=== PATIENT | male | born 1945 | race Caucasian/White ===

== ENCOUNTER → 2020-02-14 12:29 | Outpatient (CLI) | payer OTHER, SELFPAY ==
--- NOTE | 2020-02-14 12:30 | DI.RAD.S_ITS ---
PROCEDURE: XR LUMBAR SPINE MIN 4V INDICATIONS: LOW BACK PAIN TECHNIQUE: 5 views of the lumbar spine were acquired. COMPARISON: None. FINDINGS: Bones: 5 nonrib-bearing vertebrae are present. There is trace degenerative anterolisthesis of L5 on S1, trace degenerative retrolisthesis of L4 on L5, and trace degenerative anterolisthesis of L3 on L4. Multilevel degenerative disc space loss. Prominent lower lumbar hypertrophic degenerative facet arthropathy. Suspect canal stenosis. No vertebral body compression fractures. No suspicious bony lesions. Soft tissues: Overlying bowel gas pattern is normal. No suspicious soft tissue calcifications. Oblique images: No pars defects. IMPRESSION: Multilevel degenerative disc disease and prominent lower lumbar facet arthropathy. Suspect canal stenosis. Dictated by: Flo Nunn M.D. on 02/14/2020 at 13:12 Approved by: Flo Nunn M.D. on 02/14/2020 at 13:17
== END ==
PROVIDERS: PCP Family Medicine; Referring Provider Physical Medicine & Rehabilitation; Visit Provider Physical Medicine & Rehabilitation
DX: M51.16 Intervertebral disc disorders with radiculopathy, lumbar region (principal); M47.26 Other spondylosis with radiculopathy, lumbar region; G62.9 Polyneuropathy, unspecified
CPT/HCPCS: 72110; 99214

== ENCOUNTER → 2020-04-15 12:21 | Outpatient (CLI) | payer OTHER, SELFPAY ==
--- NOTE | 2020-04-15 12:23 | DI.MRI.S_ITS ---
PROCEDURE: MR LUMBAR SPINE WO CON INDICATIONS: Chronic progressive low back pain TECHNIQUE: Noncontrast sagittal T1 spin echo and T2 fast echo, sagittal STIR, axial T1 and T2 fast spin echo through the lumbar spine. In cases with scoliosis, additional coronal T2 fast spin echo may be performed. COMPARISON: [facility], CR, XR LUMBAR SPINE MIN 4V, 02/14/2020, 12:21. [facility], RG, MRI L-SPINE W/O CONTRAST, 10/06/2011, 17:17. FINDINGS: Image quality: Excellent. Alignment and Curvature: There is minimal anterolisthesis seen at L3-4. Minimal retrolisthesis is seen at L4-5. Minimal anterolisthesis is seen at L5-S1. Bone Marrow: Marrow is of normal overall signal. No acute vertebral body compression fractures. Spinal Cord: Conus medullaris terminates at the T12-L1 level. Visualized cord demonstrates normal signal and size. Paraspinous Soft Tissues: No paravertebral masses. T12-L1: Normal appearance. L1-L2: The disc height and disc signal are relatively well preserved. Mild disc bulge is seen, which is eccentric to the left. There is minimal to mild left-sided and no significant right-sided neural foraminal narrowing seen. No significant central canal narrowing is seen. Stable from the prior study. L2-L3: The disc height is well-preserved. Loss of disc signal is seen at this level. Moderate disc bulge is seen, which is eccentric to the left. There is mild right-sided and mild left-sided facet hypertrophy seen. Moderate bilateral neural foraminal narrowing is seen, left worse than right. Moderate central canal narrowing is seen. These imaging findings have progressed compared to the prior study. L3-L4: Moderate loss of disc height is seen. Loss of disc signal is seen. Moderate disc bulge is seen, which is eccentric to the left. There is moderate to prominent facet hypertrophy seen. Associated hypertrophy of the ligamentum flavum can be seen. There is at least moderate bilateral neural foraminal narrowing seen at this level. Moderate central canal narrowing is seen. These imaging findings have progressed compared to the prior study. L4-L5: Moderate prominent loss of disc height and disc signal can be seen. Moderate prominent disc bulge is seen, which is eccentric to the right. There is moderate right-sided and mild left-sided facet hypertrophy seen. There is moderate left-sided and at least moderate right-sided neural foraminal narrowing seen. Moderate central canal narrowing is seen. These degenerative changes are more prominent than in 2012. L5-S1: Moderate loss of disc height is seen. Loss of disc signal is seen. Moderate disc bulge is seen, with a central disc protrusion. Moderate prominent facet hypertrophy is seen. There is moderate to severe bilateral neural narrowing seen, right worse than left. There is a degree of compression seen upon the exiting nerve roots. At least moderate central canal narrowing is seen. These imaging findings have progressed compared to the prior study. IMPRESSION: Multiple levels of lumbar spine degenerative change are seen, which are worst at L5-S1. The degenerative changes have progressed compared to 2012. Dictated by: Donald Quinn M.D. on 04/15/2020 at 16:02 Approved by: Donald Quinn M.D. on 04/15/2020 at 16:06
== END ==
PROVIDERS: PCP Internal Medicine; Referring Provider Physical Medicine & Rehabilitation; Visit Provider Physical Medicine & Rehabilitation
DX: M47.816 Spondylosis without myelopathy or radiculopathy, lumbar region (principal); M54.5 Low back pain; M51.36 Other intervertebral disc degeneration, lumbar region; M51.37 Other intervertebral disc degeneration, lumbosacral region
CPT/HCPCS: 72148

== ENCOUNTER → 2021-01-28 08:53 | Outpatient (CLI) | payer OTHER, SELFPAY ==
[2021-01-28 15:57] LABS: COVID19 -Nasal RAPID Negative (Negative)
== END ==
PROVIDERS: PCP Internal Medicine; Referring Provider Physical Medicine & Rehabilitation; Visit Provider Physical Medicine & Rehabilitation
DX: Z20.822 Contact with and (suspected) exposure to COVID-19 (principal)
CPT/HCPCS: 87635; C9803

== ENCOUNTER 2021-01-30 14:54 | Outpatient (CLI) | payer OTHER, SELFPAY ==
[2021-01-30] VITALS (7 sets, daily range): BP systolic 98–124; BP diastolic 54–70; PULSE 62–69; RESP 11–16; TEMP 36.8; O2SAT 95–99
--- NOTE | 2021-01-30 14:56 | DI.RAD.S_ITS ---
PROCEDURE: PAIN L/S TRANSFORAMINAL INJECT INDICATIONS: SPONDYLOSIS COMPARISON: [facility], CR, XR LUMBAR SPINE MIN 4V, 02/14/2020, 12:21. FINDINGS: Fluoroscopic spot filming was performed to verify placement of a spinal needle at the L4-L5 level, as labeled on the films. Appropriate location of the needle tip was confirmed by injection of iodinated contrast. IMPRESSION: Intraprocedural examination within normal limits. Dictated by: Donald Quinn M.D. on 01/30/2021 at 15:06 Approved by: Donald Quinn M.D. on 01/30/2021 at 15:06
[2021-01-30] MEDS: fentaNYL 100 MCG/2 ML INJ 50 MCG IV (15:42)
[2021-01-30] MEDS: MIDAZOLAM 5 MG/5 ML VIAL IV (15:42)
[2021-01-30] MEDS: IOPAMIDOL 15 ML VIAL 3 ML INJ (15:46)
[2021-01-30] MEDS: BETAMETHASONE 30 MG/5 ML MDV 6 MG INJ (15:46)
[2021-01-30] MEDS: BUPIVACAINE 0.25% (PF) VIAL 2 ML INJ (15:46)
[2021-01-30] MEDS: DEXAMETHASONE 10 MG/ML VIAL 20 MG INJ (15:47)
--- NOTE | 2021-01-30 15:57 | P.PCN_ITS ---
Date/Time/Diagnoses Date of procedure: 01/30/21 Time of procedure: 15:57 Pre-procedure diagnosis: 1. FORAMINAL STENOSIS WITH LE SYMPTOMS Post-procedure diagnosis: same Procedure Notes Procedure: 1. FLUOROSCOPICALLY GUIDED CONTRAST CONTROLLED TRANSFORAMINAL EPIDURAL STEROID INJECTION - LEFT L4/5 Indications: [place] is referred by Dr. Tobar for treatment of Foraminal Stenosis with Left LE Symptoms Physician: Corbin Lacy Total Fluoroscopy time (seconds): 6 Total sedation minutes: 8 Complications: none Procedure in detail & Post-procedure care: FINDINGS Foraminal Nerve Root Compression secondary to disc disease and facet hypertrophy DESCRIPTION OF PROCEDURE Following review of allergy and review of potential side effects and complications, including, but not necessarily limited to, infection, allergic reaction, local tissue breakdown, stroke, temporary or permanent nerve injury, paralysis, and possible , the patient indicated that the patient understood and agreed to proceed. An informed consent document was signed by the patient, witnessed by a nurse, and placed in the patient's chart. Additionally, other treatment options including medications, modalities, and physical therapy were reviewed with the patient. After review of previous anaesthesic history and IV conscious sedation the patient was deemed safe to proceed with today?s procedure with IV conscious sedation as ASA class II designation. Safety time-out was performed to confirm patient ID, procedure to be performed and site of procedure. IV sedation was accomplished with a combination of 2mg of Versed and 50mcg of Fentanyl administered by the RN after DO order, titrated to patient comfort during the course of the procedure while the patient remained responsive to all verbal commands In the prone position following sterile prep and drape of the lumbar region, the left L4/5 posterior neuroforamen was identified fluoroscopically. The skin was anesthetized via a 25-gauge 1.5-inch needle with 1% lidocaine solution. At this point, a 25-gauge 3.5-inch spinal needle was atraumatically introduced and advanced under fluoroscopic guidance through the posterior left L4/5 neuroforamen to approximately the anterior aspect of the canal. Depth was confirmed on lateral view. Following negative aspiration, injection of approximately 1.5 cc of Isovue 200 under live fluoroscopy in the AP view confirmed excellent flow along the nerve root, into the epidural space without vascular or intrathecal uptake observed Radiological data, including multiple fluoroscopic views of the lumbosacral spine, reveal a spinal needle at the left L4/5 posterior neuroforamen. Subsequent views show flow of contrast material flowing superiorly and inferiorly along the nerve root confirming epidural flow. Subsequently, a test dose of 1.5 cc of 1% lidocaine solution was administered and patient was observed for two minutes for signs or symptoms of complications, including abdominal pain, shortness of breath, bilateral upper or lower extremity weakness, nausea and vomiting, prior to steroid injection. At this point, a total of 3cc or 20mg of dexamethasone and 6mg of betamethasone was injected without incident. The procedure tolerated the procedure well without signs or symptoms of complications prior to transfer to the recovery area continued monitoring without incident. The patient was then transferred to the recovery area where they were observed for an appropriate time after the injection. The patient reported a VAS score of 7 prior to the procedure and a post- procedure VAS of 0. POST OP INSTRUCTIONS The patient was provided a Pain Log to continue to record their response to the target-specific procedure prior to follow-up visit with their referring physician. Additionally, specific post-injection care instructions and a contact number to our office were provided if concerns arise regarding possible complications associated with the procedure are suspected.
== END 2021-01-30 16:30 | disposition home or self-care (01) ==
LOC: RAD 14:56
PROVIDERS: PCP Internal Medicine; Referring Provider Physical Medicine & Rehabilitation; Visit Provider Physical Medicine & Rehabilitation
DX: M48.061 Spinal stenosis, lumbar region without neurogenic claudication (principal); M51.16 Intervertebral disc disorders with radiculopathy, lumbar region
CPT/HCPCS: 64483; J0702; J1100; J2250; J3010

== ENCOUNTER → 2021-04-07 13:02 | Outpatient (CLI) | payer OTHER, SELFPAY ==
[2021-04-07 16:54] LABS: COVID19 -Nasal RAPID Negative (Negative)
== END ==
PROVIDERS: PCP Internal Medicine; Referring Provider Physical Medicine & Rehabilitation; Visit Provider Physical Medicine & Rehabilitation
DX: Z20.822 Contact with and (suspected) exposure to COVID-19 (principal)
CPT/HCPCS: 87635; C9803

== ENCOUNTER → 2021-06-30 14:09 | Outpatient (CLI) | payer OTHER, SELFPAY ==
[2021-06-30 15:35] LABS: COVID19 -Nasal RAPID Negative (Negative)
== END ==
PROVIDERS: PCP Internal Medicine; Visit Provider Physical Medicine & Rehabilitation
DX: Z20.822 Contact with and (suspected) exposure to COVID-19 (principal)
CPT/HCPCS: 87635; C9803

== ENCOUNTER 2021-07-01 15:28 | Outpatient (CLI) | payer OTHER, SELFPAY ==
[2021-07-01] VITALS (9 sets, daily range): BP systolic 107–157; BP diastolic 63–81; PULSE 55–69; RESP 11–20; TEMP 36.8; O2SAT 96–100
--- NOTE | 2021-07-01 15:30 | DI.RAD.S_ITS ---
PROCEDURE: PAIN L/S FACET INJ/BLK 1ST SKYE COMPARISON: None. INDICATIONS: SPONDYLOSIS FINDINGS: 6 fluoroscopic image demonstrate bilateral facet injections at L3 through 5. IMPRESSION: Bilateral facet injections at L3 through L5. Dictated by: Luis Aviles M.D. on 07/01/2021 at 16:48 Approved by: Luis Aviles M.D. on 07/01/2021 at 16:51
[2021-07-01] MEDS: fentaNYL 100 MCG/2 ML INJ 50 MCG IV (15:59)
[2021-07-01] MEDS: IOPAMIDOL 15 ML VIAL 3 ML INJ (16:03)
[2021-07-01] MEDS: BUPIVACAINE 0.5% (PF) VIAL 5 ML INJ (16:04)
[2021-07-01] MEDS: LIDOCAINE 1% 20 ML (16:04)
[2021-07-01] MEDS: BETAMETHASONE 30 MG/5 ML MDV 12 MG INJ (16:05)
[2021-07-01] MEDS: MIDAZOLAM 5 MG/5 ML VIAL IV (16:09)
--- NOTE | 2021-07-01 16:21 | P.PCN_ITS ---
Date/Time/Diagnoses Date of procedure: 07/01/21 Time of procedure: 16:21 Pre-procedure diagnosis: 1. FACET ARTHROPATHY 2. AXIAL LBP 3. MULTILEVEL DDD This procedure is found to meet the Governor's proclamation 20-24.2 regarding non urgent procedures. This patient meets multiple criteria for the procedure including continuing or worsening of significant or severe pain, combined with further deterioration of the patient's condition or overall health as well as delay in treatment would be expected to result in less positive ultimate medical outcome. Therefore the decision to perform the procedure in an outpatient hospital setting is found to be in accordance with guidelines of the proclama tion. Post-procedure diagnosis: same Procedure Notes Procedure: 1. FLUORSCOPICALLY GUIDED CONTRAST CONTROLLED FACET JOINT INJECTIONS BILATERAL L3/4, L4/5 Indications: Gu[place] is referred by Dr. Tobar for treatment of Axial LBP Physician: Corbin Lacy Total Fluoroscopy time (seconds): 11 Total sedation minutes: 13 Complications: none Procedure in detail & Post-procedure care: FINDINGS Multilevel Facet Arthropathy with Clinically significant axial LBP DESCRIPTION OF PROCEDURE Fluoroscopically guided, contrast-controlled bilateral L3/4, L4/5 facet joint injections. Following review of allergy and review of potential side effects and complications, including, but not necessarily limited to, infection, allergic reaction, local tissue breakdown, stroke, temporary or permanent nerve injury, paralysis, and possible , the patient indicated that the patient understood and agreed to proceed. An informed consent document was signed by the patient, witnessed by a nurse, and placed in the patient's chart. Additionally, other treatment options including medications, modalities, and physical therapy were reviewed with the patient. After review of previous anaesthesic history and IV conscious sedation the patient was deemed safe to proceed with today's procedure with IV conscious sedation as ASA class II designation. Safety time-out was performed to confirm patient ID, procedure to be performed and site of procedure. IV sedation was accomplished with a combination of 3mg of Versed and 50mcg of Fentanyl was administered by the RN after DO order, titrated to patient comfort during the course of the procedure while the patient remained responsive to all verbal commands. In the prone position, following sterile prep and drape of the lumbar region, the posterior aspect of the L3/4, L4/5 facet joints were identified fluoroscopically. The skin was anesthetized via a 25-gauge 1.5-inch needle with 1% lidocaine solution into the corresponding facet joints. At this point, a 22- gauge 3.5-inch spinal needle was atraumatically introduced and advanced under f luoroscopic guidance into the corresponding facet joints. Following negative aspiration, injections of approximately 0.2cc of Isovue 200 confirmed interarticular placement without vascular uptake. The identical procedure was then performed at the L3/4, L4/5 facet joints on the left. Radiological data, including multiple fluoroscopic views of the lumbosacral spine, reveal a spinal needle at the L3/4, L4/5 facet joints bilaterally. Subsequent views show flow of contrast material both superiorly and inferiorly within the joint space without vascular or intrathecal uptake. At this point, a total of 0.5cc including a mixture of 0.25cc Marcaine and 0.25cc betamethasone was injected without complication into each of the corresponding facet joints. The patient tolerated the procedure well without signs or symptoms of complications prior to transfer to the recovery area continued monitoring without incident. The patient was then transferred to the recovery area where they were observed for an appropriate period of time after the injection. The patient reported a VAS score of 7 prior to the procedure and a post-procedure VAS of 0. POST OP INSTRUCTIONS The patient was provided a Pain Log to continue to record their response to the target-specific procedure prior to follow-up visit with their referring physician. Additionally, specific post-injection care instructions and a contact number to our office were provided if concerns arise regarding possible complications associated with the procedure are suspected.
== END 2021-07-01 16:42 | disposition home or self-care (01) ==
PROVIDERS: PCP Internal Medicine; Referring Provider Physical Medicine & Rehabilitation; Visit Provider Physical Medicine & Rehabilitation
DX: M47.816 Spondylosis without myelopathy or radiculopathy, lumbar region (principal); M51.36 Other intervertebral disc degeneration, lumbar region
CPT/HCPCS: 64493; 64494; 99152; J0702; J2250; J3010

== ENCOUNTER → 2021-10-07 12:53 | Outpatient (CLI) | payer OTHER, SELFPAY ==
[2021-10-07 14:56] LABS: COVID19 -Nasal RAPID Negative (Negative)
== END ==
PROVIDERS: PCP Internal Medicine; Visit Provider Physical Medicine & Rehabilitation
DX: Z20.822 Contact with and (suspected) exposure to COVID-19 (principal)
CPT/HCPCS: 87635; C9803

== ENCOUNTER 2021-10-09 13:37 | Outpatient (CLI) | payer OTHER, SELFPAY ==
[2021-10-09] VITALS (9 sets, daily range): BP systolic 119–147; BP diastolic 72–85; PULSE 55–90; RESP 13–18; TEMP 36.9; O2SAT 99–100
--- NOTE | 2021-10-09 13:38 | DI.RAD.S_ITS ---
PROCEDURE: PAIN L/S FACET INJ/BLK 1ST SKYE COMPARISON: [facility], , PAIN L/S FACET INJ/BLK 1ST SKYE, 07/01/2021, 17:04. INDICATIONS: SPONDYLOSIS FINDINGS: Fluoroscopic spot filming was performed to verify placement of spinal needles on both sides at the L3, L4, L5, and S1 levels. Appropriate location of the needle tips was confirmed by injection of iodinated contrast. IMPRESSION: Intraprocedural examination demonstrating appropriate positions of the needles. Dictated by: Donald Quinn M.D. on 10/09/2021 at 13:52 Approved by: Donald Quinn M.D. on 10/09/2021 at 13:56
[2021-10-09] MEDS: MIDAZOLAM 2 MG/2 ML VIAL IV (14:14)
[2021-10-09] MEDS: IOPAMIDOL 15 ML VIAL 3 ML INJ (14:18)
[2021-10-09] MEDS: LIDOCAINE 1% 20 ML (14:18)
[2021-10-09] MEDS: BUPIVACAINE 0.5% (PF) VIAL 5 ML INJ (14:18)
[2021-10-09] MEDS: MIDAZOLAM 2 MG/2 ML VIAL (14:21)
--- NOTE | 2021-10-09 14:35 | P.PCN_ITS ---
Date/Time/Diagnoses Date of procedure: 10/09/21 Time of procedure: 14:35 Pre-procedure diagnosis: 1. FACET ARTHROPATHY Post-procedure diagnosis: same Procedure Notes Procedure: 1. BILATERAL- L3, L4, L5 and S1 DIAGNOSTIC MB BLOCKS with LA Anesthetic Indications: [place] is referred by Dr. Tobar for treatment of Bilateral Axial LBP. Physician: Corbin Lacy Total Fluoroscopy time (seconds): 12 Total sedation minutes: 16 Complications: none Procedure in detail & Post-procedure care: DESCRIPTION OF PROCEDURE Fluoroscopically guided, contrast-controlled bilateral L3, L4, L5 and S1 medial branch blocks with 0.5cc of 0.5% Marcaine. Following review of allergy and review of potential side effects and complications, including, but not necessarily limited to, infection, allergic reaction, local tissue breakdown, nerve injury, paralysis, stroke and possible , the patient indicated that the patient understood and agreed to proceed. An informed consent document was signed by the patient, witnessed by a nurse, and placed in the patient's chart. After review of previous anaesthesic history and IV conscious sedation the patient was deemed safe to proceed with today's procedure with IV conscious sedation as ASA class II designation. Safety time-out was performed to confirm patient ID, procedure to be performed and site of procedure. IV sedation was accomplished with a combination of 4mg of Versed was administered by the RN after DO order, titrated to patient comfort during the course of the procedure while the patient remained responsive to all verbal commands In the prone position, following sterile prep and drape of the lumbar region, the right L3, L4, L5 and S1 anatomical location of the medial branch of the dorsal ramus was identified fluoroscopically. Subsequently an anesthetic skin wheal using 1% lidocaine solution was initiated at each of the anatomical spots. Subsequently then a 22-gauge 3.5-inch spinal needle was atraumatically introduced and advanced under fluoroscopic guidance at each of the corresponding sites at the right L4, L5 and S1 MB. After negative aspiration, 0.2cc of Isovue 200 was injected, confirming placement without vascular or intrathecal uptake. Subsequently then 0.5cc of 0.5% Marcaine solution was injected at each of the corresponding sites at the right L3, L4, L5 and S1 medial branch locations. The identical procedure was replicated on the left. The patient tolerated the procedure well without signs or symptoms of complications prior to transfer to the recovery area continued monitoring without incident. Post-procedure, the patient was monitored initiating provocative activities to measure the amount of relief from block of the facetogenic pain. The patient reported a VAS of 7 prior to the procedure and a post-procedure VAS of 1. It has been a pleasure to assist in the diagnostic and therapeutic care of your patient. POST OP INSTRUCTIONS The patient was provided with a Pain Log to complete over the next several hours and subsequent days prior to the patient's follow up with the ordering physician. If the patient has waste treatment operator relief to the solution applied, then they may be a candidate for medial branch rhizotomy. The patient is aware, was provided, once again, with a Pain Log and will follow up with the referring physician for review and clinical correlation
== END 2021-10-09 15:00 | disposition home or self-care (01) ==
LOC: RAD 13:38
PROVIDERS: PCP Internal Medicine; Referring Provider Physical Medicine & Rehabilitation; Visit Provider Physical Medicine & Rehabilitation
DX: M47.816 Spondylosis without myelopathy or radiculopathy, lumbar region (principal); M47.817 Spondylosis without myelopathy or radiculopathy, lumbosacral region
CPT/HCPCS: 64493; 64494; 64495; 99152; J2250

== ENCOUNTER → 2021-12-25 13:52 | Outpatient (CLI) | payer OTHER, SELFPAY ==
--- NOTE | 2021-12-25 | DI.MRI.S_ITS ---
PROCEDURE: MR SHOULDER LT WO CON INDICATIONS: PAIN IN LEFT SHOULDER TECHNIQUE: Noncontrast oblique coronal T2 fast spin echo with fat saturation, oblique sagittal T1 spin echo and T2 fast spin echo with fat saturation, axial T1 spin echo and T2 fast spin echo with fat saturation through the shoulder. COMPARISON: None. FINDINGS: Image quality: Excellent. Rotator cuff: Moderate grade articular and bursal surface partial thickness tear involving distal supraspinatus at its insertion on the humeral head is seen extending to musculotendinous junction. Focal area of full-thickness perforation involving anterior to mid fibers of distal supraspinatus approximately 1.5 cm from its insertion on the humeral head are seen without significant retraction of torn tendon fibers. Low-grade articular and bursal surface partial thickness tear involving distal infraspinatus is also noted extending to musculotendinous junction. Distal subscapularis tendinosis is seen. Sagittal images demonstrate no significant muscle atrophy. Bones and bursae: No bone marrow contusions or fractures. Moderate acromioclavicular joint osteoarthritic changes are seen with joint space narrowing and downward osteophyte formation depressing on musculotendinous junction of supraspinatus. Mild to moderate glenohumeral joint osteoarthritic changes also seen. There is moderate to large subacromial subdeltoid bursal fluid. Capsule and soft tissues: Signal abnormality and contour irregularity involving superior anterior labrum at 12 to 2 o'clock position is seen suggestive of superior anterior labral tear. The long head of the biceps tendinosis is noted. The rotator interval appears normal, without fibrosis. The coracohumeral ligament is normal in thickness. IMPRESSION: 1. Low to moderate grade articular and bursal surface partial thickness tear involving distal supraspinatus and infraspinatus extending to musculotendinous junction. Focal areas of full-thickness perforation are noted involving anterior to mid fibers of distal supraspinatus approximately 1.5 cm from its insertion on the humeral head and show no significant retraction of torn tendon fibers. Distal subscapularis tendinosis. No significant muscle atrophy. 2. Moderate acromioclavicular joint osteoarthritis and [id number] glenohumeral joint osteoarthritis. Moderate to large subacromial subdeltoid bursal fluid. No gross loose bodies. 3. Suggestion of superior anterior labral tear at 12 to 2 o'clock position. 4. Proximal intra-articular portion of long head of biceps tendinosis. Dictated by: Steven Padilla M.D. on 12/25/2021 at 15:18 Approved by: Steven Padilla M.D. on 12/25/2021 at 15:21
== END ==
PROVIDERS: PCP Internal Medicine; Referring Provider Internal Medicine; Visit Provider Internal Medicine
DX: M75.112 Incomplete rotator cuff tear or rupture of left shoulder, not specified as traumatic (principal); M19.012 Primary osteoarthritis, left shoulder; M25.512 Pain in left shoulder
CPT/HCPCS: 73221

== ENCOUNTER 2021-12-31 00:29 | Emergency (ER) | payer OTHER, SELFPAY ==
[2021-12-31] VITALS (24 sets, daily range): BP systolic 130–167; BP diastolic 73–94; PULSE 58–120; RESP 13–23; O2SAT 97–100; BMI 25.1
--- NOTE | 2021-12-31 00:41 | DI.RAD.S_ITS ---
PROCEDURE: XR CHEST 1V INDICATIONS: chest pain TECHNIQUE: One view of the chest was acquired. COMPARISON: None. FINDINGS: Surgical changes and devices: None. Lungs and pleura: Lungs are clear. No pleural effusions or pneumothorax. Mediastinum: Mediastinal contours appear normal. Heart size is normal. Bones and chest wall: No suspicious bony lesions. Overlying soft tissues appear unremarkable. IMPRESSION: 1. No acute cardiopulmonary disease. Dictated by: Cheo Drake M.D. on 12/31/2021 at 1:31 Approved by: Cheo Drake M.D. on 12/31/2021 at 1:32
[2021-12-31 01:03] LABS: Add Manual Diff / Slide Review NO; Basophils Absolute Auto 0 /uL (0-100); Basophils Percent Auto 0.2 % (0-2); Eosinophils Absolute Auto 200 /uL (0-450); Eosinophils Percent Auto 3.1 % (2-4); Hemoglobin 11.6 g/dL (13.5-17.5); Lymphocytes Absolute Auto 1600 /uL (1100-4500); Lymphocytes Percent Auto 24.8 % (25-40); Mean Corpuscular HGB Conc 34.2 % (30-36); Mean Corpuscular Hemoglobin 29.7 PG (26-34); Mean Corpuscular Volume 86.8 fL (80-100); Monocytes Absolute Auto 500 /uL (0-900); Monocytes Percent Auto 7.5 % (3-14); Neutrophils Absolute Auto 4100 /uL (1500-7000); Neutrophils Percent Auto 64.4 % (50-75); Platelet Count 194 X10^3/uL (150-400); Red Blood Cell Count 3.92 X10^6/uL (4.5-5.9); Red Cell Distribution Width 13.8 % (11.6-14.8); White Blood Cell Count 6.4 X10^3/uL (4.5-11.0)
[2021-12-31 01:04] LABS: Alanine Aminotransferase 13 IU/L (<50); Albumin 4.2 g/dL (3.5-5.0); Albumin Globulin Ratio 1.5 (1.0-2.8); Alkaline Phosphatase 82 U/L (38-126); Aspartate Aminotransferase 19 IU/L (17-59); BUN Creatinine Ratio 29.1 (6-22); Bilirubin Total 0.6 mg/dL (0.2-1.3); Blood Urea Nitrogen 32 mg/dL (9-20); Calcium 8.3 mg/dL (8.4-10.2); Carbon Dioxide 26 mmol/L (22-32); Chloride 106 mmol/L (98-107); Creatine Kinase 201 U/L (55-170); Estimated Glomerular Filt Rate > 60 mL/min (>60); Globulin 2.8 g/dL (1.7-4.1); Glucose 118 mg/dL (80-110); HEMOLYSIS < 15 (0-50); Lipase 91 U/L (23-300); Magnesium 2.4 mg/dL (1.6-2.3); Potassium 4.2 mmol/L (3.4-5.1); Sodium 140 mmol/L (137-145)
[2021-12-31 01:15] LABS: Troponin I < 0.012 ng/mL (0.01-0.034)
[2021-12-31 01:19] LABS: CKMB % Relative Index 2.5 % (1.5-5.0); Creatine Kinase MB 4.97 ng/mL (<2.37)
--- NOTE | 2021-12-31 01:46 | ED_ITS ---
HPI - Syncope <Lenny Jackman MD - Last Filed: 01/06/22 18:13> General Chief Complaint: Syncope Stated Complaint: syncope Time Seen by Provider: 12/31/21 01:04 Source: EMS Mode of arrival: EMS History of Present Illness HPI narrative: Blood sugar 108 by EMS. Patient brought in by ambulance from home for a witnes sed 10 minute episode of syncope by his . Patient states he was in the kitchen getting ready for bed and he felt very hot and sweaty. He states he sweated a lot, but no headache chest pain palpitations back pain abdominal pain numbness tingling. He told his he was going to lay down on the couch. Which he did. asked him if he felt okay he said he felt very tired and he appeared to fall asleep. She did awake him and he fell back asleep again. No seizure activity. Did not stop breathing. He awoke after 10 minutes. She did call EMS. This has not happened before. No recent illness. No vomiting diarrhea black or bloody stools. No new medications. No drugs or alcohol. No history of heart attack strokes or diabetes. No history of blood clots in legs or lungs. Denies any palpitations Related Data Home Medications Medication Instructions Recorded Confirmed ascorbic acid (vitamin C) 500 mg mg PO 02/14/20 09/22/21 capsule biotin 1,000 mcg chewable tablet 1,000 mcg PO DAILY 02/14/20 09/22/21 cholecalciferol (vitamin D3) 25 25 mcg PO DAILY 02/14/20 09/22/21 mcg (1,000 unit) capsule cyanocobalamin (vitamin B-12) 1,000 mcg IM QMONTH 02/14/20 09/22/21 1,000 mcg/mL injection solution ketoconazole 2 % topical cream 1 applictn topical DAILY 02/14/20 09/22/21 losartan 50 mg tablet 50 mg PO DAILY 02/14/20 09/22/21 ropinirole 1 mg tablet 1 mg PO BEDTIME 01/10/21 09/22/21 rosuvastatin 10 mg tablet 10 mg PO DAILY 01/10/21 09/22/21 hydrocodone 7.5 mg-acetaminophen 1 tab PO Q6-8H 09/22/21 09/22/21 325 mg tablet omeprazole 20 mg capsule,delayed 20 mg PO DAILY 09/22/21 09/22/21 release Previous Rx's Medication Instructions Recorded gabapentin 300 mg capsule 600 mg PO QID #240 caps 01/16/21 tramadol 50 mg tablet 50 mg PO BID PRN pain #42 tabs 12/30/21 Allergies Allergy/AdvReac Type Severity Reaction Status Date / Time triamcinolone [From Kenalog] Allergy Severe Anaphylaxis Verified 09/22/21 14:46 Review of Systems <Lenny Jackman MD - Last Filed: 01/06/22 18:13> Review of Systems Narrative: GENERAL: Denies chills, fatigue, malaise, fever, positive for sweats. HEENT: Denies sinus pain, ear pain, sore throat RESPIRATORY: Denies dyspnea, cough CARDIOVASCULAR: Denies chest pain, palpitations GASTROINTESTINAL: Denies nausea, vomiting, abdominal pain : Denies dysuria, frequency, hematuria MUSCULOSKELETAL: denies muscle or bony pain SKIN: Denies rash, skin lesions NEUROLOGIC: Denies weakness, numbness, positive for dizziness ROS Unobtainable: All systems reviewed & are unremarkable except as noted in HPI and below Patient History <Lenny Jackman MD - Last Filed: 01/06/22 18:13> Medical History Facet arthropathy, lumbar Gastric ulcer Lumbar radiculopathy Pancreatic cyst Sensory peripheral neuropathy Spondylolisthesis at L3-L4 level Surgical History History of cholecystectomy History of tonsillectomy Status post right rotator cuff repair Family History Father Cancer Non-Hodgkin lymphoma Mother Stroke Afib Social History Smoking Status: Former smoker Smoking Status: Former smoker Exam <Lenny Jackman MD - Last Filed: 01/06/22 18:13> Narrative Exam Narrative: GENERAL: in no distress, not toxic not dyspneic HEAD: Normocephalic. EYES: Pupils equal round No scleral icterus. ENT: Mucous membranes moist. NECK: Trachea midline. CARDIOVASCULAR: Regular rate and rhythm , soft systolic murmur heard at the base RESPIRATORY: Clear to auscultation. Breath sounds equal bilaterally. No wheezes, rales, or rhonchi. GASTROINTESTINAL: Abdomen soft, non-tender EXTREMITIES: No gross deformities. BACK: No flank tenderness. NEURO: AOx4. Clear speech no facial droop light touch intact in bilateral face and hands with strong equal digital marketing project manager. Negative pronator drift SKIN: Warm and dry PSYCH: Not anxious, is cooperative Initial Vital Signs Initial Vital Signs: Vital Signs Pulse Rate 65 12/31/21 00:36 Respiratory Rate 18 12/31/21 00:36 Blood Pressure 138/80 12/31/21 00:36 Pulse Oximetry 99 12/31/21 00:36 Oxygen Delivery Method 12/31/21 00:36 <Nataly Britt DO - Last Filed: 01/05/22 04:08> Initial Vital Signs Initial Vital Signs: Vital Signs Pulse Rate 65 12/31/21 00:36 Respiratory Rate 18 12/31/21 00:36 Blood Pressure 138/80 12/31/21 00:36 Pulse Oximetry 99 12/31/21 00:36 Oxygen Delivery Method 12/31/21 00:36 Course <Lenny Jackman MD - Last Filed: 01/06/22 18:13> Course Course Narrative: No new issues during course of stay December 31, 2021 7:00 a.m.. Sign out to Dr. Britt, echocardiogram has been ordered. CT scan head results as well as CT scan abdomen and pelvis are pending results. May need Cardiology consult for further studies, likely will need MRI. Will need to talk to hospitalist for possible admit Orders Ordered: Discontinued Medications Sodium Chloride (Normal Saline 0.9%) 500 mls @ 1,000 mls/hr IV BOLUS ONE Stop: 12/31/21 02:52 Last Infusion: 12/31/21 03:22 Dose: 0 mls/hr Documented By: Admin: 12/31/21 02:30 Dose: 1,000 mls/hr Documented By: BALJINDER Vital Signs Vital signs: Vital Signs - 8 hr 12/31/21 02:00 12/31/21 02:30 12/31/21 03:00 Pulse Rate 60 61 63 Respiratory Rate 17 16 22 Blood Pressure Pulse Oximetry 99 99 100 12/31/21 03:30 12/31/21 03:48 12/31/21 03:48 Pulse Rate 83 77 Respiratory Rate 20 18 Blood Pressure 165/84 H Pulse Oximetry 99 98 12/31/21 04:00 12/31/21 04:01 12/31/21 04:01 Pulse Rate 59 L 58 L Respiratory Rate 17 18 Blood Pressure 148/76 H Pulse Oximetry 98 99 12/31/21 04:30 12/31/21 04:30 12/31/21 05:00 Pulse Rate 59 L Respiratory Rate 13 Blood Pressure 133/77 137/79 Pulse Oximetry 98 12/31/21 05:00 12/31/21 05:30 12/31/21 06:00 Pulse Rate 75 120 H 71 Respiratory Rate 20 20 16 Blood Pressure Pulse Oximetry 97 99 12/31/21 08:36 12/31/21 08:37 12/31/21 08:37 Pulse Rate 68 81 Respiratory Rate 17 15 Blood Pressure 151/83 H Pulse Oximetry 98 99 <Nataly Britt, - Last Filed: 01/05/22 04:08> Orders Ordered: Discontinued Medications Sodium Chloride (Normal Saline 0.9%) 500 mls @ 1,000 mls/hr IV BOLUS ONE Stop: 12/31/21 02:52 Last Infusion: 12/31/21 03:22 Dose: 0 mls/hr Documented By: Admin: 12/31/21 02:30 Dose: 1,000 mls/hr Documented By: BALJINDER Vital Signs Vital signs: Vital Signs - 8 hr 12/31/21 02:00 12/31/21 02:30 12/31/21 03:00 Pulse Rate 60 61 63 Respiratory Rate 17 16 22 Blood Pressure Pulse Oximetry 99 99 100 12/31/21 03:30 12/31/21 03:48 12/31/21 03:48 Pulse Rate 83 77 Respiratory Rate 20 18 Blood Pressure 165/84 H Pulse Oximetry 99 98 12/31/21 04:00 12/31/21 04:01 12/31/21 04:01 Pulse Rate 59 L 58 L Respiratory Rate 17 18 Blood Pressure 148/76 H Pulse Oximetry 98 99 12/31/21 04:30 12/31/21 04:30 12/31/21 05:00 Pulse Rate 59 L Respiratory Rate 13 Blood Pressure 133/77 137/79 Pulse Oximetry 98 12/31/21 05:00 12/31/21 05:30 12/31/21 06:00 Pulse Rate 75 120 H 71 Respiratory Rate 20 20 16 Blood Pressure Pulse Oximetry 97 99 12/31/21 08:36 12/31/21 08:37 12/31/21 08:37 Pulse Rate 68 81 Respiratory Rate 17 15 Blood Pressure 151/83 H Pulse Oximetry 98 99 MDM - Syncope <Lenny Jackman MD - Last Filed: 01/06/22 18:13> Differential Diagnosis Differential diagnosis: Likely syncope due to orthostatic hypotension, vasovagal syncope, complete atrioventricular block, pulmonary embolism, dehydration and other (Valvular stenosis/insufficiency) Lab Data Result diagrams: 12/31/21 00:42 12/31/21 00:42 Labs: Lab Results 12/31/21 12/31/21 12/31/21 Range/Units 00:42 00:42 00:42 WBC 6.4 (4.5-11.0) X10^3/uL RBC 3.92 L (4.5-5.9) X10^6/uL Hgb 11.6 L (13.5-17.5) g/dL Hct 34.0 L (41-53) % MCV 86.8 (80-100) fL MCH 29.7 (26-34) PG MCHC 34.2 (30-36) % RDW 13.8 (11.6-14.8) % Plt Count 194 (150-400) X10^3/uL Neut % (Auto) 64.4 (50-75) % Lymph % (Auto) 24.8 L (25-40) % [place] % (Auto) 7.5 (3-14) % Eos % (Auto) 3.1 (2-4) % Baso % (Auto) 0.2 (0-2) % Neut # (Auto) 4100 (0380-0466) /uL Lymph # (Auto) 1600 (9030-8843) /uL [place] # (Auto) 500 (0-900) /uL Eos # (Auto) 200 (0-450) /uL Baso # (Auto) 0 (0-100) /uL D-Dimer 924 H (<500) ng/ml Sodium 140 (137-145) mmol/L Potassium 4.2 (3.4-5.1) mmol/L Chloride 106 (98-107) mmol/L Carbon Dioxide 26 (22-32) mmol/L BUN 32 H (9-20) mg/dL Creatinine 1.10 (0.66-1.25) mg/dL Estimated GFR > 60 (>60) mL/min BUN/Creatinine Ratio 29.1 H (6-22) Glucose 118 H (80-110) mg/dL Calcium 8.3 L (8.4-10.2) mg/dL Magnesium 2.4 H (1.6-2.3) mg/dL Total Bilirubin 0.6 (0.2-1.3) mg/dL AST 19 (17-59) IU/L ALT 13 (<50) IU/L Alkaline Phosphatase 82 (38-126) U/L Total Creatine Kinase 201 H (55-170) U/L CK-MB (CK-2) 4.97 H (<2.37) ng/mL CK-MB (CK-2) Rel Index 2.5 (1.5-5.0) % Troponin I < 0.012 (0.01-0.034) ng/mL Total Protein 7.0 (6.3-8.2) g/dL Albumin 4.2 (3.5-5.0) g/dL Globulin 2.8 (1.7-4.1) g/dL Albumin/Globulin Ratio 1.5 (1.0-2.8) Lipase 91 (23-300) U/L Urine Color Urine Appearance Urine pH (4.5-8.0) Ur Specific Bath (1.000-1.035) Urine Protein (Negative) Urine Glucose (UA) (Negative) g/dL Urine Ketones (NEGATIVE) Urine Occult Blood (Negative) Urine Nitrate (Negative) Urine Bilirubin (NEGATIVE) Urine Urobilinogen (0.2) E.U./dL Ur Leukocyte Esterase (NEGATIVE) Urine RBC (0-5/HPF) Urine WBC (0-5/HPF) Urine Bacteria (None) Ur Culture Indicated? Micro UA Comment U Opiates 300ng/mL cut (Negative) Ur Oxycodone Screen (Negative) Urine Methadone Screen (Negative) Ur Barbiturates Screen (Negative) U Tricyclic Antidepress (Negative) Ur Phencyclidine Scrn (Negative) Ur Amphetamines Screen (Negative) U Methamphetamines Scrn (Negative) Ur MDMA Scrn (Ecstasy) (Negative) U Benzodiazepines Scrn (Negative) Urine Cocaine Screen (Negative) U Marijuana (THC) Screen (Negative) Chlamy pneumoniae PCR (Not Detect) Adenovirus (PCR) (Not Detect) B. pertussis DNA (PCR) (Not Detecte) B.parapertussis DNA PCR (Not Detecte) Coronavirus OC43 (PCR) (Not Detect) Coronavirus HKU1 (PCR) (Not Detect) Coronavirus 229E (PCR) (Not Detect) SARS-CoV-2 (PCR) (Not Detecte) Coronavirus NL63 (PCR) (Not Detect) Human Metapneumovir PCR (Not Detect) Influenza Type A (PCR) (Not Detect) Influenza Type B (PCR) (Not Detect) M. pneumoniae (PCR) (Not Detect) Parainfluenza 1 (PCR) (Not Detect) Parainfluenza 2 (PCR) (Not Detect) Parainfluenza 3 (PCR) (Not Detect) Parainfluenza 4 (PCR) (Not Detect) RSV (PCR) (Not Detect) Entero/Rhino (PCR) (Not Detect) 12/31/21 12/31/21 12/31/21 Range/Units 03:30 03:30 05:00 WBC (4.5-11.0) X10^3/uL RBC (4.5-5.9) X10^6/uL Hgb (13.5-17.5) g/dL Hct (41-53) % MCV (80-100) fL MCH (26-34) PG MCHC (30-36) % RDW (11.6-14.8) % Plt Count (150-400) X10^3/uL Neut % (Auto) (50-75) % Lymph % (Auto) (25-40) % [place] % (Auto) (3-14) % Eos % (Auto) (2-4) % Baso % (Auto) (0-2) % Neut # (Auto) (5082-7820) /uL Lymph # (Auto) (4197-9728) /uL [place] # (Auto) (0-900) /uL Eos # (Auto) (0-450) /uL Baso # (Auto) (0-100) /uL D-Dimer (<500) ng/ml Sodium (137-145) mmol/L Potassium (3.4-5.1) mmol/L Chloride (98-107) mmol/L Carbon Dioxide (22-32) mmol/L BUN (9-20) mg/dL Creatinine (0.66-1.25) mg/dL Estimated GFR (>60) mL/min BUN/Creatinine Ratio (6-22) Glucose (80-110) mg/dL Calcium (8.4-10.2) mg/dL Magnesium (1.6-2.3) mg/dL Total Bilirubin (0.2-1.3) mg/dL AST (17-59) IU/L ALT (<50) IU/L Alkaline Phosphatase (38-126) U/L Total Creatine Kinase 165 (55-170) U/L CK-MB (CK-2) 4.31 H (<2.37) ng/mL CK-MB (CK-2) Rel Index 2.6 (1.5-5.0) % Troponin I < 0.012 (0.01-0.034) ng/mL Total Protein (6.3-8.2) g/dL Albumin (3.5-5.0) g/dL Globulin (1.7-4.1) g/dL Albumin/Globulin Ratio (1.0-2.8) Lipase (23-300) U/L Urine Color Yellow Urine Appearance Clear Urine pH 5.0 (4.5-8.0) Ur Specific Bath 1.010 (1.000-1.035) Urine Protein Negative (Negative) Urine Glucose (UA) Negative (Negative) g/dL Urine Ketones Negative (NEGATIVE) Urine Occult Blood Negative (Negative) Urine Nitrate Negative (Negative) Urine Bilirubin Negative (NEGATIVE) Urine Urobilinogen 0.2 (0.2) E.U./dL Ur Leukocyte Esterase Negative (NEGATIVE) Urine RBC None seen (0-5/HPF) Urine WBC None seen (0-5/HPF) Urine Bacteria None seen (None) Ur Culture Indicated? Cult not indicated Micro UA Comment Microscopic normal U Opiates 300ng/mL cut Negative (Negative) Ur Oxycodone Screen Negative (Negative) Urine Methadone Screen Negative (Negative) Ur Barbiturates Screen Negative (Negative) U Tricyclic Antidepress Negative (Negative) Ur Phencyclidine Scrn Negative (Negative) Ur Amphetamines Screen Negative (Negative) U Methamphetamines Scrn Negative (Negative) Ur MDMA Scrn (Ecstasy) Negative (Negative) U Benzodiazepines Scrn Negative (Negative) Urine Cocaine Screen Negative (Negative) U Marijuana (THC) Screen Negative (Negative) Chlamy pneumoniae PCR (Not Detect) Adenovirus (PCR) (Not Detect) B. pertussis DNA (PCR) (Not Detecte) B.parapertussis DNA PCR (Not Detecte) Coronavirus OC43 (PCR) (Not Detect) Coronavirus HKU1 (PCR) (Not Detect) Coronavirus 229E (PCR) (Not Detect) SARS-CoV-2 (PCR) (Not Detecte) Coronavirus NL63 (PCR) (Not Detect) Human Metapneumovir PCR (Not Detect) Influenza Type A (PCR) (Not Detect) Influenza Type B (PCR) (Not Detect) M. pneumoniae (PCR) (Not Detect) Parainfluenza 1 (PCR) (Not Detect) Parainfluenza 2 (PCR) (Not Detect) Parainfluenza 3 (PCR) (Not Detect) Parainfluenza 4 (PCR) (Not Detect) RSV (PCR) (Not Detect) Entero/Rhino (PCR) (Not Detect) 12/31/21 Range/Units 06:21 WBC (4.5-11.0) X10^3/uL RBC (4.5-5.9) X10^6/uL Hgb (13.5-17.5) g/dL Hct (41-53) % MCV (80-100) fL MCH (26-34) PG MCHC (30-36) % RDW (11.6-14.8) % Plt Count (150-400) X10^3/uL Neut % (Auto) (50-75) % Lymph % (Auto) (25-40) % [place] % (Auto) (3-14) % Eos % (Auto) (2-4) % Baso % (Auto) (0-2) % Neut # (Auto) (0087-8713) /uL Lymph # (Auto) (3123-4264) /uL [place] # (Auto) (0-900) /uL Eos # (Auto) (0-450) /uL Baso # (Auto) (0-100) /uL D-Dimer (<500) ng/ml Sodium (137-145) mmol/L Potassium (3.4-5.1) mmol/L Chloride (98-107) mmol/L Carbon Dioxide (22-32) mmol/L BUN (9-20) mg/dL Creatinine (0.66-1.25) mg/dL Estimated GFR (>60) mL/min BUN/Creatinine Ratio (6-22) Glucose (80-110) mg/dL Calcium (8.4-10.2) mg/dL Magnesium (1.6-2.3) mg/dL Total Bilirubin (0.2-1.3) mg/dL AST (17-59) IU/L ALT (<50) IU/L Alkaline Phosphatase (38-126) U/L Total Creatine Kinase (55-170) U/L CK-MB (CK-2) (<2.37) ng/mL CK-MB (CK-2) Rel Index (1.5-5.0) % Troponin I (0.01-0.034) ng/mL Total Protein (6.3-8.2) g/dL Albumin (3.5-5.0) g/dL Globulin (1.7-4.1) g/dL Albumin/Globulin Ratio (1.0-2.8) Lipase (23-300) U/L Urine Color Urine Appearance Urine pH (4.5-8.0) Ur Specific Bath (1.000-1.035) Urine Protein (Negative) Urine Glucose (UA) (Negative) g/dL Urine Ketones (NEGATIVE) Urine Occult Blood (Negative) Urine Nitrate (Negative) Urine Bilirubin (NEGATIVE) Urine Urobilinogen (0.2) E.U./dL Ur Leukocyte Esterase (NEGATIVE) Urine RBC (0-5/HPF) Urine WBC (0-5/HPF) Urine Bacteria (None) Ur Culture Indicated? Micro UA Comment U Opiates 300ng/mL cut (Negative) Ur Oxycodone Screen (Negative) Urine Methadone Screen (Negative) Ur Barbiturates Screen (Negative) U Tricyclic Antidepress (Negative) Ur Phencyclidine Scrn (Negative) Ur Amphetamines Screen (Negative) U Methamphetamines Scrn (Negative) Ur MDMA Scrn (Ecstasy) (Negative) U Benzodiazepines Scrn (Negative) Urine Cocaine Screen (Negative) U Marijuana (THC) Screen (Negative) Chlamy pneumoniae PCR Not detected (Not Detect) Adenovirus (PCR) Not detected (Not Detect) B. pertussis DNA (PCR) Not detected (Not Detecte) B.parapertussis DNA PCR Not detected (Not Detecte) Coronavirus OC43 (PCR) Not detected (Not Detect) Coronavirus HKU1 (PCR) Not detected (Not Detect) Coronavirus 229E (PCR) Not detected (Not Detect) SARS-CoV-2 (PCR) Not detected (Not Detecte) Coronavirus NL63 (PCR) Not detected (Not Detect) Human Metapneumovir PCR Not detected (Not Detect) Influenza Type A (PCR) Not detected (Not Detect) Influenza Type B (PCR) Not detected (Not Detect) M. pneumoniae (PCR) Not detected (Not Detect) Parainfluenza 1 (PCR) Not detected (Not Detect) Parainfluenza 2 (PCR) Not detected (Not Detect) Parainfluenza 3 (PCR) Not detected (Not Detect) Parainfluenza 4 (PCR) Not detected (Not Detect) RSV (PCR) Not detected (Not Detect) Entero/Rhino (PCR) Not detected (Not Detect) Imaging Data Chest x-ray: Radiologist's Impression: [address] [id number] ReportSigned Patient: Guanako Ren KMR#: [id number]: 4Acct:[id number]/Sex: 76 / MDate of Service: 12/31/21Loc: EDAccession Number: [id number] Procedure: XR chest 1V Ordering Provider: Lenny Jackman MD PROCEDURE: XR CHEST 1V INDICATIONS: chest pain TECHNIQUE: One view of the chest was acquired. COMPARISON: None. FINDINGS: Surgical changes and devices: None. Lungs and pleura: Lungs are clear. No pleural effusions or pneumothorax. Mediastinum: Mediastinal contours appear normal. Heart size is normal. Bones and chest wall: No suspicious bony lesions. Overlying soft tissues appea r unremarkable. IMPRESSION: 1. No acute cardiopulmonary disease. Dictated by: Cheo Drake M.D. on 12/31/2021 at 1:31 Approved by: Cheo Drake M.D. on 12/31/2021 at 1:32 CT scan - chest: Radiologist's Impression: No pulmonary embolism. Subsegmental atelectasis and dependent ground-glass opacity within the lower lobes bilaterally. Underlying infection can not be completely excluded. Cystic collection within the gallbladder fossa. Differential considerations include cystic duct remnant, seroma. ECG Data Interpretation: Normal sinus rhythm rate [address] elevation or depression. EKG is normal sinus rhythm rate [ ] and free of any signs of ischemia or ectopy. No ST segmental elevation or depression. No T wave inversions MDM Narrative Medical decision making narrative: Differential diagnosis includes but not limited to dehydration/vasovagal/arrhyt hmias/pulmonary embolism/mi. Stroke less likely. Patient had no other neuro complaints. No deficits. <Nataly Britt, DO - Last Filed: 01/05/22 04:08> Lab Data Labs: Lab Results 12/31/21 12/31/21 12/31/21 Range/Units 00:42 00:42 00:42 WBC 6.4 (4.5-11.0) X10^3/uL RBC 3.92 L (4.5-5.9) X10^6/uL Hgb 11.6 L (13.5-17.5) g/dL Hct 34.0 L (41-53) % MCV 86.8 (80-100) fL MCH 29.7 (26-34) PG MCHC 34.2 (30-36) % RDW 13.8 (11.6-14.8) % Plt Count 194 (150-400) X10^3/uL Neut % (Auto) 64.4 (50-75) % Lymph % (Auto) 24.8 L (25-40) % [place] % (Auto) 7.5 (3-14) % Eos % (Auto) 3.1 (2-4) % Baso % (Auto) 0.2 (0-2) % Neut # (Auto) 4100 (2955-0039) /uL Lymph # (Auto) 1600 (1380-5001) /uL [place] # (Auto) 500 (0-900) /uL Eos # (Auto) 200 (0-450) /uL Baso # (Auto) 0 (0-100) /uL D-Dimer 924 H (<500) ng/ml Sodium 140 (137-145) mmol/L Potassium 4.2 (3.4-5.1) mmol/L Chloride 106 (98-107) mmol/L Carbon Dioxide 26 (22-32) mmol/L BUN 32 H (9-20) mg/dL Creatinine 1.10 (0.66-1.25) mg/dL Estimated GFR > 60 (>60) mL/min BUN/Creatinine Ratio 29.1 H (6-22) Glucose 118 H (80-110) mg/dL Calcium 8.3 L (8.4-10.2) mg/dL Magnesium 2.4 H (1.6-2.3) mg/dL Total Bilirubin 0.6 (0.2-1.3) mg/dL AST 19 (17-59) IU/L ALT 13 (<50) IU/L Alkaline Phosphatase 82 (38-126) U/L Total Creatine Kinase 201 H (55-170) U/L CK-MB (CK-2) 4.97 H (<2.37) ng/mL CK-MB (CK-2) Rel Index 2.5 (1.5-5.0) % Troponin I < 0.012 (0.01-0.034) ng/mL Total Protein 7.0 (6.3-8.2) g/dL Albumin 4.2 (3.5-5.0) g/dL Globulin 2.8 (1.7-4.1) g/dL Albumin/Globulin Ratio 1.5 (1.0-2.8) Lipase 91 (23-300) U/L Urine Color Urine Appearance Urine pH (4.5-8.0) Ur Specific Bath (1.000-1.035) Urine Protein (Negative) Urine Glucose (UA) (Negative) g/dL Urine Ketones (NEGATIVE) Urine Occult Blood (Negative) Urine Nitrate (Negative) Urine Bilirubin (NEGATIVE) Urine Urobilinogen (0.2) E.U./dL Ur Leukocyte Esterase (NEGATIVE) Urine RBC (0-5/HPF) Urine WBC (0-5/HPF) Urine Bacteria (None) Ur Culture Indicated? Micro UA Comment U Opiates 300ng/mL cut (Negative) Ur Oxycodone Screen (Negative) Urine Methadone Screen (Negative) Ur Barbiturates Screen (Negative) U Tricyclic Antidepress (Negative) Ur Phencyclidine Scrn (Negative) Ur Amphetamines Screen (Negative) U Methamphetamines Scrn (Negative) Ur MDMA Scrn (Ecstasy) (Negative) U Benzodiazepines Scrn (Negative) Urine Cocaine Screen (Negative) U Marijuana (THC) Screen (Negative) Chlamy pneumoniae PCR (Not Detect) Adenovirus (PCR) (Not Detect) B. pertussis DNA (PCR) (Not Detecte) B.parapertussis DNA PCR (Not Detecte) Coronavirus OC43 (PCR) (Not Detect) Coronavirus HKU1 (PCR) (Not Detect) Coronavirus 229E (PCR) (Not Detect) SARS-CoV-2 (PCR) (Not Detecte) Coronavirus NL63 (PCR) (Not Detect) Human Metapneumovir PCR (Not Detect) Influenza Type A (PCR) (Not Detect) Influenza Type B (PCR) (Not Detect) M. pneumoniae (PCR) (Not Detect) Parainfluenza 1 (PCR) (Not Detect) Parainfluenza 2 (PCR) (Not Detect) Parainfluenza 3 (PCR) (Not Detect) Parainfluenza 4 (PCR) (Not Detect) RSV (PCR) (Not Detect) Entero/Rhino (PCR) (Not Detect) 12/31/21 12/31/21 12/31/21 Range/Units 03:30 03:30 05:00 WBC (4.5-11.0) X10^3/uL RBC (4.5-5.9) X10^6/uL Hgb (13.5-17.5) g/dL Hct (41-53) % MCV (80-100) fL MCH (26-34) PG MCHC (30-36) % RDW (11.6-14.8) % Plt Count (150-400) X10^3/uL Neut % (Auto) (50-75) % Lymph % (Auto) (25-40) % [place] % (Auto) (3-14) % Eos % (Auto) (2-4) % Baso % (Auto) (0-2) % Neut # (Auto) (2815-8209) /uL Lymph # (Auto) (2558-1399) /uL [place] # (Auto) (0-900) /uL Eos # (Auto) (0-450) /uL Baso # (Auto) (0-100) /uL D-Dimer (<500) ng/ml Sodium (137-145) mmol/L Potassium (3.4-5.1) mmol/L Chloride (98-107) mmol/L Carbon Dioxide (22-32) mmol/L BUN (9-20) mg/dL Creatinine (0.66-1.25) mg/dL Estimated GFR (>60) mL/min BUN/Creatinine Ratio (6-22) Glucose (80-110) mg/dL Calcium (8.4-10.2) mg/dL Magnesium (1.6-2.3) mg/dL Total Bilirubin (0.2-1.3) mg/dL AST (17-59) IU/L ALT (<50) IU/L Alkaline Phosphatase (38-126) U/L Total Creatine Kinase 165 (55-170) U/L CK-MB (CK-2) 4.31 H (<2.37) ng/mL CK-MB (CK-2) Rel Index 2.6 (1.5-5.0) % Troponin I < 0.012 (0.01-0.034) ng/mL Total Protein (6.3-8.2) g/dL Albumin (3.5-5.0) g/dL Globulin (1.7-4.1) g/dL Albumin/Globulin Ratio (1.0-2.8) Lipase (23-300) U/L Urine Color Yellow Urine Appearance Clear Urine pH 5.0 (4.5-8.0) Ur Specific Bath 1.010 (1.000-1.035) Urine Protein Negative (Negative) Urine Glucose (UA) Negative (Negative) g/dL Urine Ketones Negative (NEGATIVE) Urine Occult Blood Negative (Negative) Urine Nitrate Negative (Negative) Urine Bilirubin Negative (NEGATIVE) Urine Urobilinogen 0.2 (0.2) E.U./dL Ur Leukocyte Esterase Negative (NEGATIVE) Urine RBC None seen (0-5/HPF) Urine WBC None seen (0-5/HPF) Urine Bacteria None seen (None) Ur Culture Indicated? Cult not indicated Micro UA Comment Microscopic normal U Opiates 300ng/mL cut Negative (Negative) Ur Oxycodone Screen Negative (Negative) Urine Methadone Screen Negative (Negative) Ur Barbiturates Screen Negative (Negative) U Tricyclic Antidepress Negative (Negative) Ur Phencyclidine Scrn Negative (Negative) Ur Amphetamines Screen Negative (Negative) U Methamphetamines Scrn Negative (Negative) Ur MDMA Scrn (Ecstasy) Negative (Negative) U Benzodiazepines Scrn Negative (Negative) Urine Cocaine Screen Negative (Negative) U Marijuana (THC) Screen Negative (Negative) Chlamy pneumoniae PCR (Not Detect) Adenovirus (PCR) (Not Detect) B. pertussis DNA (PCR) (Not Detecte) B.parapertussis DNA PCR (Not Detecte) Coronavirus OC43 (PCR) (Not Detect) Coronavirus HKU1 (PCR) (Not Detect) Coronavirus 229E (PCR) (Not Detect) SARS-CoV-2 (PCR) (Not Detecte) Coronavirus NL63 (PCR) (Not Detect) Human Metapneumovir PCR (Not Detect) Influenza Type A (PCR) (Not Detect) Influenza Type B (PCR) (Not Detect) M. pneumoniae (PCR) (Not Detect) Parainfluenza 1 (PCR) (Not Detect) Parainfluenza 2 (PCR) (Not Detect) Parainfluenza 3 (PCR) (Not Detect) Parainfluenza 4 (PCR) (Not Detect) RSV (PCR) (Not Detect) Entero/Rhino (PCR) (Not Detect) 12/31/21 Range/Units 06:21 WBC (4.5-11.0) X10^3/uL RBC (4.5-5.9) X10^6/uL Hgb (13.5-17.5) g/dL Hct (41-53) % MCV (80-100) fL MCH (26-34) PG MCHC (30-36) % RDW (11.6-14.8) % Plt Count (150-400) X10^3/uL Neut % (Auto) (50-75) % Lymph % (Auto) (25-40) % [place] % (Auto) (3-14) % Eos % (Auto) (2-4) % Baso % (Auto) (0-2) % Neut # (Auto) (8981-3270) /uL Lymph # (Auto) (2190-5144) /uL [place] # (Auto) (0-900) /uL Eos # (Auto) (0-450) /uL Baso # (Auto) (0-100) /uL D-Dimer (<500) ng/ml Sodium (137-145) mmol/L Potassium (3.4-5.1) mmol/L Chloride (98-107) mmol/L Carbon Dioxide (22-32) mmol/L BUN (9-20) mg/dL Creatinine (0.66-1.25) mg/dL Estimated GFR (>60) mL/min BUN/Creatinine Ratio (6-22) Glucose (80-110) mg/dL Calcium (8.4-10.2) mg/dL Magnesium (1.6-2.3) mg/dL Total Bilirubin (0.2-1.3) mg/dL AST (17-59) IU/L ALT (<50) IU/L Alkaline Phosphatase (38-126) U/L Total Creatine Kinase (55-170) U/L CK-MB (CK-2) (<2.37) ng/mL CK-MB (CK-2) Rel Index (1.5-5.0) % Troponin I (0.01-0.034) ng/mL Total Protein (6.3-8.2) g/dL Albumin (3.5-5.0) g/dL Globulin (1.7-4.1) g/dL Albumin/Globulin Ratio (1.0-2.8) Lipase (23-300) U/L Urine Color Urine Appearance Urine pH (4.5-8.0) Ur Specific Bath (1.000-1.035) Urine Protein (Negative) Urine Glucose (UA) (Negative) g/dL Urine Ketones (NEGATIVE) Urine Occult Blood (Negative) Urine Nitrate (Negative) Urine Bilirubin (NEGATIVE) Urine Urobilinogen (0.2) E.U./dL Ur Leukocyte Esterase (NEGATIVE) Urine RBC (0-5/HPF) Urine WBC (0-5/HPF) Urine Bacteria (None) Ur Culture Indicated? Micro UA Comment U Opiates 300ng/mL cut (Negative) Ur Oxycodone Screen (Negative) Urine Methadone Screen (Negative) Ur Barbiturates Screen (Negative) U Tricyclic Antidepress (Negative) Ur Phencyclidine Scrn (Negative) Ur Amphetamines Screen (Negative) U Methamphetamines Scrn (Negative) Ur MDMA Scrn (Ecstasy) (Negative) U Benzodiazepines Scrn (Negative) Urine Cocaine Screen (Negative) U Marijuana (THC) Screen (Negative) Chlamy pneumoniae PCR Not detected (Not Detect) Adenovirus (PCR) Not detected (Not Detect) B. pertussis DNA (PCR) Not detected (Not Detecte) B.parapertussis DNA PCR Not detected (Not Detecte) Coronavirus OC43 (PCR) Not detected (Not Detect) Coronavirus HKU1 (PCR) Not detected (Not Detect) Coronavirus 229E (PCR) Not detected (Not Detect) SARS-CoV-2 (PCR) Not detected (Not Detecte) Coronavirus NL63 (PCR) Not detected (Not Detect) Human Metapneumovir PCR Not detected (Not Detect) Influenza Type A (PCR) Not detected (Not Detect) Influenza Type B (PCR) Not detected (Not Detect) M. pneumoniae (PCR) Not detected (Not Detect) Parainfluenza 1 (PCR) Not detected (Not Detect) Parainfluenza 2 (PCR) Not detected (Not Detect) Parainfluenza 3 (PCR) Not detected (Not Detect) Parainfluenza 4 (PCR) Not detected (Not Detect) RSV (PCR) Not detected (Not Detect) Entero/Rhino (PCR) Not detected (Not Detect) Imaging Data ECHO: Radiologist's Impression: Guanako Ren?(Vikas)??76??M??1945 ? Allergy/Adv: triamcinolone (More??) Close Head CT (Signed) Herman Li - 12/31/21 Echocardiogram Ultrasound (Signed) Lori Mccracken - 12/31/21 Chest CTA (Signed) Call,Matti - 12/31/21 Abdomen/Pelvis CT (Signed) Call,Matti - 12/31/21 Chest X-Ray (Signed) Cheo Drake - 12/31/21 Shoulder MRI (Signed) Steven Padilla - 12/25/21 Facet Joint Injection X-Ray (Signed) Donald Quinn - 10/09/21 Facet Joint Injection X-Ray (Signed) Luis Aviles - 07/01/21 Injection Lumbar, Sacrum (Signed) Donald Quinn - 01/30/21 Lumbar Spine MRI (Signed) Donald Quinn - 04/15/20 Lumbar Spine X-Ray (Signed) Flo Nunn - 02/14/20 Outside DI 10/06/[address] [place] [address] Echocardiography Report Signed Patient: Guanako Ren MR#: [id number] : 1945 Acct:[id number] Age/Sex: 76 / M Date of Service: 12/31/21 Loc: ED Accession Number: [id number] ?? Procedure: EC echo doppler complete Ordering Provider: Lenny Jackman MD ? Island +---------+? [facility]? +---------+ : ? :? [address] ? : ? : : ? :? [place], [place] ? : ? : : ? :? [id number] ? : ? : : ? : ? Phone: [phone]? : ? : [phone]? [phone]? +---------+ ? Echocardiogram Report + + :Name: GUANAKO REN? Study Date: 12/31/2021 ? Height: 71 in? : :[facility] ? ReadingLocation: ? Weight: 180 lb : : ? Gender: Male ? BSA: 2.0 m2? ? : :: 1945? Age: 76 yrs? BP: 156/82 mmHg: :Reason For Study: Chest pain ? : :Ordering Physician:? : :LENNY JACKMAN? Performed By: Janes Tanner ? : :Referring: LENNY JACKMAN ? : + + Interpretation Summary 1) Normal left ventricular thickness, size, wall motion, and systolic function (EF 55-60%). 2) Normal right ventricular size and function. 3) No significant valvular abnormalities. 4) No prior Echo available for comparison. ? Procedure: ? A two-dimensional transthoracic echocardiogram with color flow and Doppler was performed. The study quality was technically adequate. There is no prior echocardiogram noted for this patient. Left Ventricle: ? The left ventricle is normal in size and wall thickness. Left ventricular systolic function is normal. The ejection fraction is estimated to be 55-60%. There are no focal wall motion abnormalities. Diastolic parameters suggest probable normal left ventricular diastolic function and normal filling pressures. Right Ventricle: ? The right ventricle is normal in size and function. Atria: ? Both atria are normal in size. The interatrial septum grossly appears intact with no obvious evidence for an atrial septal defect. Mitral Valve: ? The mitral valve is normal in structure and function. There is no mitral regurgitation noted. Aortic Valve: ? The aortic valve is normal in structure and function. There is no aortic valve stenosis. There is trace aortic regurgitation. Tricuspid Valve: ? The tricuspid valve is normal in structure and function. There is mild tricuspid regurgitation. The right ventricular systolic pressure is estimated to be at least 29 mmHg based on an estimated right atrial pressure of 3 mm Hg. Pulmonic Valve: ? The pulmonic valve is normal in structure and function. There is mild pulmonic regurgitation. Great Vessels: ? The aortic root is normal size. The dimensions of the ascending aorta are normal. The IVC is of normal diameter and collapses greater than 50% with a sniff. This suggests a low right atrial pressure of 3 mm Hg. Pericardium/ Pleura ? There is no pericardial effusion. There is no pleural effusion. ? MMode/2D Measurements & Calculations LVIDd: 5.6 cm ? LVOT diam: 2.2 cm LVIDs: 3.6 cm ? Ao root diam: 3.4 cm FS: 35.1 %? asc Aorta Diam: 3.2 cm IVSd: 0.80 cm LVPWd: 0.85 cm LV mejia. diameter/BSA (cm/m^2): 2.8 LV sys. diameter/BSA (cm/m^2): 1.8 ? LA A2 area: 18.9 cm2? RA long axis: 5.0 cm LA A4 area: 21.4 cm2? RA area: 17.5 cm2 LA length (vol): 5.5 cm ? RA vol: 51.8 ml LA vol: 61.9 ml ? RA : 25.7 ml/m2 LA vol index: 30.7 ml/m2 ? TAPSE: 2.7 cm ? Doppler Measurements & Calculations Ao V2 max: 121.6 cm/sec ? LVOT Max Umesh: 78.7 cm/sec Ao V2 mean: 88.9 cm/sec ? LV V1 max P.5 mmHg Ao max P.9 mmHg ? LV V1 VTI: 17.5 cm Ao mean P.5 mmHg? GIORGIO(I,D): 2.3 cm2 Ao V2 VTI: 28.4 cm? GIORGIO(V,D): 2.4 cm2 ? sev ratio: 0.61 ? GIORGIO indexed to BSA (cm^2/m^2): 1.2 ? MV E max umesh: 71.4 cm/sec ? TR max umesh: 253.3 cm/sec MV A max umesh: 84.1 cm/sec ? TR max P.7 mmHg MV E/A: 0.85 Med Peak E' Umesh: 7.0 cm/sec E/E' med: 10.1 Lat Peak E' Umesh: 6.6 cm/sec E/E' lat: 10.9 E/e' average: 10.5 MV dec time: 0.21 sec ? SV(LVOT): 66.0 ml ? Reading Physician:09:31 AM MDM Narrative Medical decision making narrative: Differential diagnosis includes but not limited to dehydration/vasovagal/arrhyt hmias/pulmonary embolism/mi. Stroke less likely. Patient had no other neuro complaints. No deficits. 12/31/21 Mank: Patient signed out to myself by Dr. Jackman. Patient seen independently evaluated by myself. Patient had which seems to be likely a syncopal episode. No clear emergent cause was found. Dr. Blevins felt he appreciated a slight murmur so echo was ordered. Head CT CT angio and CT abdomen pelvis do not show any acute changes or cause, his labs are otherwise reassuring, echo is reassuring as well today. Discussed with patient he has had occasional palpitation type episodes usually before bedtime but never had similar symptoms as this. All of patient's workup was reviewed. He is not had any arrhythmias on telemetry. After discussion patient is felt safe to be discharged home we discussed possible Holter monitor or ZIO patch as outpatient and follow-up closely with primary care or cardiology. Patient feels comfortable with this plan he is done well overnight has not had any issues with ambulation in the department. Discharge Plan Departure Patient Disposition: Home Clinical Impression: Syncope Instructions: DI for Syncope in Adults (Fainting) Activity Restrictions/Additional Instructions: Follow-up with primary care for recheck, I would discuss with your physician about having a Holter monitor or ZIO patch to check for arrhythmias. You. Have had a syncopal episode or passed out today, no clear or emergent cause was found today you had CT of her head, chest, abdomen and pelvis as well as echo and labs and EKGs which have not shown any clear cause. Your CT of your abdomen and pelvis did show a cyst near your gallbladder fossa if you are having abdominal pain or symptoms this should be followed up or can be followed with her primary care with ultrasound in the future. Please return for fevers, new chest pain or shortness of breath, passing out, recurrent lightheadedness, persistent vomiting, new swelling in your extremities or other new or concerning symptoms. Prescriptions: No Action gabapentin 300 mg capsule 600 mg PO QID Qty: 240 0RF Rx Instructions: TAKE 2-300MG FOUR TIMES DAILY. ADJUST DOSE FOR BETTER PAIN CONTROL tramadol 50 mg tablet 50 mg PO BID PRN (Reason: pain) Qty: 42 1RF rosuvastatin 10 mg tablet 10 mg PO DAILY Label Comments: TAKE 1 TABLET BY MOUTH EVERY EVENING FOR HIGH CHOLESTEROL ropinirole 1 mg tablet 1 mg PO BEDTIME ketoconazole 2 % cream 1 applictn TOP DAILY losartan 50 mg tablet 50 mg PO DAILY cyanocobalamin (vitamin B-12) 1,000 mcg/mL solution 1,000 mcg IM QMONTH cholecalciferol (vitamin D3) 25 mcg (1,000 unit) capsule 25 mcg PO DAILY ascorbic acid (vitamin C) 500 mg capsule PO biotin 1,000 mcg tablet,chewable 1,000 mcg PO DAILY omeprazole 20 mg capsule,delayed release(DR/EC) 20 mg PO DAILY Label Comments: TAKE 1 TABLET BY MOUTH TWICE DAILY hydrocodone-acetaminophen 7.5-325 mg tablet 1 tab PO Q6-8H Label Comments: TAKE 1 TABLET BY MOUTH AT BEDTIME Referrals: Lenny Tobar MD [Primary Care Provider] - Visit Report Forms: Patient Portal/API
[2021-12-31 01:58] LABS: D Dimer 924 ng/ml (<500)
--- NOTE | 2021-12-31 02:25 | DI.CT.S_ITS ---
PROCEDURE: CT ABDOMEN PELVIS W CON INDICATIONS: Abdominal pain TECHNIQUE: After the administration of IV contrast, axial sections were acquired from the lung bases to the pubic symphysis. Coronal and sagittal reformats were performed. For radiation dose reduction, the following was used: automated exposure control, adjustment of mA and/or kV according to patient size. COMPARISON: [facility], CT, CT ANGIO CHEST PE PROTOCOL, 12/31/2021, 3:38. FINDINGS: Image quality: Excellent. Lung bases: No pleural effusion. Heart: No significant findings. ABDOMEN: Liver: Tiny hypodense foci. Likely benign cyst or hemangioma. Gallbladder: Absent. Biliary ducts: Cystic duct appears dilated, (2/19). Intrahepatic bile ducts are within normal limits. CBD appears to be within normal limits. Pancreas: No peripancreatic fluid collection is identified. Spleen: Unremarkable. Adrenal Glands: No nodule. Kidneys and Ureters: No hydronephrosis. Atrophic left kidney. The small benign right renal cyst. A few cortical hypodensities bilaterally which are too small to further characterize. Excreted contrast in the right ureter. Stomach and Bowel: Stomach, small bowel loops, and colon are unremarkable. The appendix is not identified. Peritoneum: No abnormal intraperitoneal fluid. No free air. Ventral Wall: No hernia. Abdominal Nodes: No retroperitoneal or mesenteric adenopathy by size criteria. Vessels: Aorta and inferior vena cava are normal in size. PELVIS: Pelvic Organs: Prostatomegaly. Bladder: No stone. Pelvic Nodes: No enlarged lymph nodes. Miscellaneous: No inguinal hernias are seen. Bones: Several sclerotic foci in the pelvis, (2/43, 48, 51). No compression fracture. Multilevel DDD. IMPRESSION: 1. No acute inflammatory process is identified. No free fluid. 2. Cyst near the gallbladder fossa. This could represent a dilated cystic duct remnant or fluid collection/seroma. MRCP or ultrasound could be considered for further evaluation. 3. Atrophic left kidney. 4. Sclerotic foci in the pelvis. Difficult to exclude neoplasm. Comparison with more remote CTs would be helpful if available. Nuclear medicine bone scan or MRI could be performed for further evaluation. This report is concordant with the overnight preliminary interpretation. Dictated by: Matti Villalta M.D. on 12/31/2021 at 8:40 Approved by: Matti Villalta M.D. on 12/31/2021 at 9:01
--- NOTE | 2021-12-31 02:25 | DI.CT.S_ITS ---
PROCEDURE: CT ANGIO CHEST PE PROTOCOL INDICATIONS: Chest pain/syncope TECHNIQUE: After the administration of intravenous contrast, 2 mm thick sections acquired from the pulmonary apices to the posterior costophrenic angles. 3-dimensional maximum intensity projection (MIP) coronal and sagittal reformats were then acquired through the thorax. For radiation dose reduction, the following was used: automated exposure control, adjustment of mA and/or kV according to patient size. COMPARISON: [facility], CT, CT ABDOMEN PELVIS W CON, 12/31/2021, 3:38. FINDINGS: Image quality: Excellent. Pulmonary arteries: Pulmonary arteries are normal in size, and demonstrate no intraluminal filling defects to suggest central pulmonary embolism. Lungs and pleura: Right upper lobe pulmonary nodule measuring 0.4 cm (5/212). A few small calcified granuloma. Minimal thickening at the right major fissure. Mild bibasilar atelectasis. No consolidation. No pleural effusions or pneumothorax. Central and peripheral airways are patent. Mediastinum: Heart size is normal, without pericardial effusion. Shotty appearing at AP window node measuring 0.9 cm, (4/53). Thoracic aorta is normal in caliber and enhancement. Esophagus is normal in caliber, without hiatal hernia. Bones and chest wall: Sclerotic focus at the right lateral 4th rib, (4/58). Sclerotic focus at the left lateral 4th rib, (4/51). A few additional small sclerotic foci. Mild scoliosis. Ribs and thoracic spine appear intact throughout. Thyroid gland is unremarkable. No axillary or supraclavicular adenopathy. Abdomen: Please see separately dictated same day CT abdomen pelvis. Cystic structure at the gallbladder fossa. Atrophic left kidney. IMPRESSION: 1. No pulmonary embolism. 2. Streaky ground-glass opacity at the lung bases. Favor atelectasis. No consolidation. 3. A shotty mediastinal lymph node. 4. A few sclerotic foci involving the ribs. It is difficult to exclude neoplasm. Consider nuclear medicine bone scan. No significant discrepancy with the overnight preliminary interpretation. Please see separately dictated same day CT abdomen pelvis. Dictated by: Matti Villalta M.D. on 12/31/2021 at 9:01 Approved by: Matti Villalta M.D. on 12/31/2021 at 9:15
[2021-12-31] MEDS: SODIUM CHLORIDE 0.9% 500 ML 1000 ML IV (02:30)
[2021-12-31 03:39] LABS: Appearance Urine UA CLEAR; Bilirubin Urine UA NEGATIVE (NEGATIVE); Color Urine UA YELLOW; Glucose Urine UA NEGATIVE (Negative); Ketones Urine UA NEGATIVE (NEGATIVE); Leukocyte Esterase Urine UA NEGATIVE (NEGATIVE); Nitrite Urine UA NEGATIVE (Negative); Occult Blood Urine UA NEGATIVE (Negative); Protein Urine UA NEGATIVE (Negative); Urobilinogen Urine UA 0.2 E.U./dL (0.2)
[2021-12-31 03:43] LABS: Ur Creatinine Normal (Normal); Ur Specific Gravity Normal (Normal); Urine pH Normal (Normal)
[2021-12-31 03:44] LABS: Urine Cocaine Negative (Negative); Urine Tetrahydrocannabinol Negative (Negative)
[2021-12-31 03:45] LABS: UR Morphine/Opiate cutoff 300 Negative (Negative); Urine Amphetamines Negative (Negative); Urine Barbiturates Negative (Negative); Urine Benzodiazepines Negative (Negative); Urine MDMA Negative (Negative); Urine Methadone Negative (Negative); Urine Methamphetamines Negative (Negative); Urine Oxycodone Negative (Negative); Urine Phencyclidine Negative (Negative); Urine Tricyclic Antidepressant Negative (Negative)
[2021-12-31 03:48] LABS: RBC Urine None Seen (0-5/HPF); WBC Urine None Seen (0-5/HPF)
[2021-12-31 03:49] LABS: Bacteria Urine None Seen; Culture Indicated Urine Cult Not Indicated; Urine Comments Microscopic Normal
[2021-12-31 05:28] LABS: Creatine Kinase 165 U/L (55-170)
[2021-12-31 05:41] LABS: Troponin I < 0.012 ng/mL (0.01-0.034)
[2021-12-31 05:43] LABS: CKMB % Relative Index 2.6 % (1.5-5.0); Creatine Kinase MB 4.31 ng/mL (<2.37)
--- NOTE | 2021-12-31 06:04 | DI.ECHO.S_ITS ---
[facility]---------+ [facility] +---------+ : : [address] : : : : [id number] : : : : Phone: [phone] : : [phone]---------+ Echocardiogram Report + + :Name: MORGAN REN Study Date: 12/31/2021 Height: 71 in : :[facility] ReadingLocation: Weight: 180 lb : : Gender: Male BSA: 2.0 m2 : :: 1945 Age: 76 yrs BP: 156/82 mmHg: :Reason For Study: Chest pain : :Ordering Physician: : :LENNY JACKMAN Performed By: Janes Tanner : :Referring: LENNY JACKMAN : + + Interpretation Summary 1) Normal left ventricular thickness, size, wall motion, and systolic function (EF 55-60%). 2) Normal right ventricular size and function. 3) No significant valvular abnormalities. 4) No prior Echo available for comparison. Procedure: A two-dimensional transthoracic echocardiogram with color flow and Doppler was performed. The study quality was technically adequate. There is no prior echocardiogram noted for this patient. Left Ventricle: The left ventricle is normal in size and wall thickness. Left ventricular systolic function is normal. The ejection fraction is estimated to be 55-60%. There are no focal wall motion abnormalities. Diastolic parameters suggest probable normal left ventricular diastolic function and normal filling pressures. Right Ventricle: The right ventricle is normal in size and function. Atria: Both atria are normal in size. The interatrial septum grossly appears intact with no obvious evidence for an atrial septal defect. Mitral Valve: The mitral valve is normal in structure and function. There is no mitral regurgitation noted. Aortic Valve: The aortic valve is normal in structure and function. There is no aortic valve stenosis. There is trace aortic regurgitation. Tricuspid Valve: The tricuspid valve is normal in structure and function. There is mild tricuspid regurgitation. The right ventricular systolic pressure is estimated to be at least 29 mmHg based on an estimated right atrial pressure of 3 mm Hg. Pulmonic Valve: The pulmonic valve is normal in structure and function. There is mild pulmonic regurgitation. Great Vessels: The aortic root is normal size. The dimensions of the ascending aorta are normal. The IVC is of normal diameter and collapses greater than 50% with a sniff. This suggests a low right atrial pressure of 3 mm Hg. Pericardium/ Pleura There is no pericardial effusion. There is no pleural effusion. MMode/2D Measurements & Calculations LVIDd: 5.6 cm LVOT diam: 2.2 cm LVIDs: 3.6 cm Ao root diam: 3.4 cm FS: 35.1 % asc Aorta Diam: 3.2 cm IVSd: 0.80 cm LVPWd: 0.85 cm LV mejia. diameter/BSA (cm/m^2): 2.8 LV sys. diameter/BSA (cm/m^2): 1.8 LA A2 area: 18.9 cm2 RA long axis: 5.0 cm LA A4 area: 21.4 cm2 RA area: 17.5 cm2 LA length (vol): 5.5 cm RA vol: 51.8 ml LA vol: 61.9 ml RA : 25.7 ml/m2 LA vol index: 30.7 ml/m2 TAPSE: 2.7 cm Doppler Measurements & Calculations Ao V2 max: 121.6 cm/sec LVOT Max Umesh: 78.7 cm/sec Ao V2 mean: 88.9 cm/sec LV V1 max P.5 mmHg Ao max P.9 mmHg LV V1 VTI: 17.5 cm Ao mean P.5 mmHg GIORGIO(I,D): 2.3 cm2 Ao V2 VTI: 28.4 cm GIORGIO(V,D): 2.4 cm2 sev ratio: 0.61 GIORGIO indexed to BSA (cm^2/m^2): 1.2 MV E max umesh: 71.4 cm/sec TR max umesh: 253.3 cm/sec MV A max umesh: 84.1 cm/sec TR max P.7 mmHg MV E/A: 0.85 Med Peak E' Umesh: 7.0 cm/sec E/E' med: 10.1 Lat Peak E' Umesh: 6.6 cm/sec E/E' lat: 10.9 E/e' average: 10.5 MV dec time: 0.21 sec SV(LVOT): 66.0 ml Reading Physician:09:31 AM
--- NOTE | 2021-12-31 06:36 | DI.CT.S_ITS ---
PROCEDURE: CT HEAD/BRAIN WO CON INDICATIONS: syncope TECHNIQUE: Noncontrast 4.5 mm thick angled axial sections acquired from the foramen magnum to the vertex, with coronal and sagittal reformats. For radiation dose reduction, the following was used: automated exposure control, adjustment of mA and/or kV according to patient size. COMPARISON: None. FINDINGS: Image quality: Excellent. CSF spaces: Basal cisterns are patent. No extra-axial fluid collections. The ventricles are symmetric in size and shape. Brain: No intracranial bleeds or masses. There is cerebral volume loss for age, with resultant ventricular and sulcal prominence. There are periventricular and deep white matter chronic small vessel ischemic changes. There is intracranial internal carotid artery atherosclerosis. Skull and face: Calvarium and visualized facial bones appear intact, without suspicious lesions. Sinuses: Visualized sinuses and mastoids are clear. IMPRESSION: 1. No acute intracranial abnormalities. 2. Cerebral volume loss and chronic microvascular ischemic changes. No significant discrepancy with the surface hydrologist radiology preliminary report. Dictated by: Herman Li M.D. on 12/31/2021 at 7:02 Approved by: Herman Li M.D. on 12/31/2021 at 7:03
[2021-12-31 07:22] LABS: Adenovirus Not Detected (Not Detect); B. parapertussis Not Detected (Not Detecte); Bordetella pertussis Not Detected (Not Detecte); Chlamydophila pneumoniae Not Detected (Not Detect); Coronavirus 229E Not Detected (Not Detect); Coronavirus HKU1 Not Detected (Not Detect); Coronavirus NL 63 Not Detected (Not Detect); Coronavirus OC43 Not Detected (Not Detect); Human Metapneumovirus Not Detected (Not Detect); Human Rhinovirus/Enterovirus Not Detected (Not Detect); Influenza A Not Detected (Not Detect); Influenza B Not Detected (Not Detect); Mycoplasma pneumoniae Not Detected (Not Detect); Parainfluenza Virus 1 Not Detected (Not Detect); Parainfluenza Virus 2 Not Detected (Not Detect); Parainfluenza Virus 3 Not Detected (Not Detect); Parainfluenza Virus 4 Not Detected (Not Detect); Respiratory Syncytial Virus Not Detected (Not Detect); SARS- CoV-2 Not Detected (Not Detecte)
== END 2021-12-31 10:13 | disposition home or self-care (01) ==
PROVIDERS: Emergency Medicine; Emergency Provider Emergency Medicine; PCP Internal Medicine
DX: R55 Syncope and collapse (principal); R07.9 Chest pain, unspecified; Z20.822 Contact with and (suspected) exposure to COVID-19
CPT/HCPCS: 70450; 71045; 71275; 74177; 80053; 80305; 81001; 82550; 82553; 83690; 83735; 84484; 85025; 85379; 87633; 93005; 93010; 93306; 96360; 99284; Q9967

== ENCOUNTER → 2022-06-25 10:30 | Outpatient (CLI) | payer OTHER, SELFPAY ==
--- NOTE | 2022-06-25 | DI.MRI.S_ITS ---
PROCEDURE: MR ABDOMEN WO/W CON INDICATIONS: PSEUDOCYST OF PANCREAS TECHNIQUE: Coronal HASTE, axial 2D FLASH in- and [id number]; axial breath-hold T2 FSE with fat saturation from the hepatic dome to the iliac crests. Oblique coronal thin-slice and radial thick slab HASTE through the biliary system. Dynamic axial VIBE during administration of contrast. Post-contrast coronal VIBE or 2D FLASH with fat saturation from the hepatic dome to the iliac crests. Optional diffusion weighted imaging and ADC may be performed. COMPARISON: [facility], CT, CT ABDOMEN PELVIS W CON, 12/31/2021, 3:38. FINDINGS: Image quality: Mild motion degradation Lower chest: No basal effusions. Lungs are not well evaluated on MRI. Solid organs: Overall liver is unremarkable. Tiny cysts are present. gallbladder is absent. Stable cystic structure near the gallbladder fossa with small filling defects (7/13) overall measuring 2.7 x 2.0 cm. Stable prominent biliary tree, post cholecystectomy. Stable prominent pancreatic duct compared to prior in the body of the pancreas, there is a cystic lesion that communicates with the main duct measuring about 1.3 x 1.0 cm. Pancreatic parenchymal atrophy and loss of the intrinsic T1 signal. No splenomegaly. No adrenal nodules. There are renal cysts. Atrophic left kidney compared to the right, as before. No hydronephrosis on today's study. Vessels and lymph nodes: No pathologic adenopathy by size criteria. No abdominal aortic aneurysm. The main portal vein appears patent. Bowel and peritoneum: No pathologic ascites. No small bowel obstruction. Body wall: Unremarkable Bones: Degenerative changes without acute or suspicious osseous finding. A possible hemangioma is seen at L1. IMPRESSION: Stable cystic structure near the cholecystectomy site with filling defects, favored to represent a dilated cystic duct remnant with small retained stones. Similar prominent biliary tree post cholecystectomy. Pancreatic cyst with ductal communication measuring up to 1.3 cm. Consider repeat imaging in 1-2 years with pancreas protocol MRI at clinical discretion. Pancreatic parenchymal atrophy and loss of intrinsic T1 signal compatible with prior inflammation. Other findings as above. Dictated by: Pablo Mitchell M.D. on 06/25/2022 at 12:05 Approved by: Pablo Mitchell M.D. on 06/25/2022 at 12:14
== END ==
PROVIDERS: PCP Internal Medicine; Referring Provider Internal Medicine Gastroenterology; Visit Provider Internal Medicine Gastroenterology
DX: K86.3 Pseudocyst of pancreas (principal); K85.90 Acute pancreatitis without necrosis or infection, unspecified; N28.1 Cyst of kidney, acquired
CPT/HCPCS: 74183

== ENCOUNTER 2022-06-25 11:36 | Emergency (ER) | payer OTHER, SELFPAY ==
[2022-06-25 11:40] VITALS: BP 120/78; PULSE 100; RESP 15; TEMP 35.9; O2SAT 97; BMI 23.7
--- NOTE | 2022-06-25 11:49 | ED_ITS ---
HPI - Allergic Reaction General Chief complaint: Allergic Reaction Stated complaint: had contrast dye now having reaction Time Seen by Provider: 06/25/22 11:49 Source: patient Mode of arrival: Ambulatory Limitations: no limitations History of Present Illness HPI narrative: This is a 77-year-old male with history of Raynaud's, hypertension, dyslipidemia with known allergy to Kenalog but states that he tolerates prednisone. Patient states he had an MRI with contrast to evaluate his abdomen. He states he developed swelling around his eyes and redness of his and had a little bit of a cough. He denies any swelling of his lips tongue, airway no difficulty with breathing. No chest pain or shortness of breath. No wheezing. No nausea or vomiting. No diarrhea. And his note he would an MRI last year with contrast and developed swelling of his eyes but no other symptoms. They actually went to see the raw stock machine feeder the same day and had drops. Patient does note he has not allergy to Kenalog he states it is anaphylaxis but states he is had prednisone in the past he is unsure about Solu-Medrol without issue. He is also had Benadryl without any issues in the past. Patient is accompanied by his . Related Data Home Medications Medication Instructions Recorded Confirmed ascorbic acid (vitamin C) 500 mg mg PO 02/14/20 03/23/22 capsule biotin 1,000 mcg chewable tablet 1,000 mcg PO DAILY 02/14/20 03/23/22 cholecalciferol (vitamin D3) 25 25 mcg PO DAILY 02/14/20 03/23/22 mcg (1,000 unit) capsule cyanocobalamin (vitamin B-12) 1,000 mcg IM QMONTH 02/14/20 03/23/22 1,000 mcg/mL injection solution losartan 50 mg tablet 50 mg PO DAILY 02/14/20 03/23/22 ropinirole 1 mg tablet 1 mg PO BEDTIME 01/10/21 03/23/22 hydrocodone 7.5 mg-acetaminophen 1 tab PO Q6-8H 09/22/21 03/23/22 325 mg tablet omeprazole 20 mg capsule,delayed 20 mg PO DAILY 09/22/21 03/23/22 release [id number] 1 cap PO DAILY 01/19/22 03/23/22 24,000-76,000-120,000 unit capsule,delayed rel (Creon) metoprolol tartrate 25 mg tablet 25 mg PO DAILY 03/23/22 03/23/22 Previous Rx's Medication Instructions Recorded gabapentin 300 mg capsule 600 mg PO QID #240 caps 01/16/21 diclofenac sodium 75 mg See Rx Instructions .Route 04/28/22 tablet,delayed release .COMPLEX #60 tabs tramadol 50 mg tablet 50 mg PO BID PRN pain #42 tabs 06/16/22 prednisone 20 mg tablet 40 mg PO DAILY #10 tabs 06/25/22 Allergies Allergy/AdvReac Type Severity Reaction Status Date / Time triamcinolone [From Kenalog] Allergy Severe Anaphylaxis Verified 06/25/22 11:40 Review of Systems Review of Systems ROS Unobtainable: All systems reviewed & are unremarkable except as noted in HPI and below Patient History Medical History DJD of left AC (acromioclavicular) joint Facet arthropathy, lumbar Gastric ulcer Labral tear of shoulder Lumbar radiculopathy Pancreatic cyst Rotator cuff tear arthropathy of left shoulder Sensory peripheral neuropathy Spondylolisthesis at L3-L4 level Surgical History History of cholecystectomy History of tonsillectomy Status post right rotator cuff repair Family History Father Cancer Non-Hodgkin lymphoma Mother Stroke Afib Social History Smoking Status: Former smoker Smoking Status: Former smoker alcohol intake frequency: holidays/special occasions only Substance Use Type: does not use Exam Narrative Exam Narrative: GEN: well nourished, elderly male, alert and oriented x 3, patient appears to be in mild distress. HEENT: Atraumatic, pupils are equal round reactive to light, extraocular movements are intact, patient has periorbital swelling bilaterally, no other facial swelling noted. Nares are clear, TMs are clear with no fluid, there is no conjunctival pallor. Throat is clear without any exudates, erythema, tonsillar enlargement or uvular deviation, airways intact, no swelling of lips tongue. Normal speech. No issues with swallowing or secretions. HEART: Regular rate and rhythm without murmur, clicks, rubs. Cap refills slightly decreased left hand greater than right patient states that is normal he has Raynaud's. LUNGS:Lungs clear to auscultation, no wheezes, rales, crackles, chest moves sy mmetrically, no tachypnea or accessory muscle use. ABD:bowel sounds normal, soft, non-tender, no guarding, rebound, rigidity, no masses noted, no hepatosplenomegaly :No CVA tenderness, [male/female exam] MSCL: Non-tender, no muscle atrophy, muscles strength 5/5 upper and lower extremities, full range of motion, normal gait NEURO:CN 2-12 intact, sensation normal SKIN: Patient has some blotchy erythema of his face extremities. Initial Vital Signs Initial Vital Signs: Vital Signs Temperature 96.7 F L 06/25/22 11:40 Pulse Rate 100 H 06/25/22 11:40 Respiratory Rate 15 06/25/22 11:40 Blood Pressure 120/78 06/25/22 11:40 Pulse Oximetry 97 06/25/22 11:40 Oxygen Delivery Method 06/25/22 11:40 Course Orders Ordered: Discontinued Medications Diphenhydramine HCl (Diphenhydramine 25 Mg Tablet) 50 mg PO NOW ONE Stop: 06/25/22 11:50 Last Admin: 06/25/22 11:54 Dose: 50 mg Documented By: AT Prednisone (Prednisone 20 Mg Tablet) 60 mg PO NOW ONE Stop: 06/25/22 11:50 Last Admin: 06/25/22 11:54 Dose: 60 mg Documented By: AT Reevaluation(s) Reevaluation #1: recheck patient has had significant improvement of swelling of the eyes periorbitally his sclera do appear swollen. But rashes also resolved. Patient states he feels improved as well. Discussed that patient does appear to have a MRI contrast allergy. Plan for oral prednisone, Benadryl 50 mg q.i.d. as needed and return precautions. Time: 14:27 Consultations Consultation #1: Dr. Pereyra, ophthalmology Vital Signs Vital signs: Vital Signs - 8 hr 06/25/22 11:40 06/25/22 13:41 06/25/22 15:03 Temperature 96.7 F L Pulse Rate 100 H 92 H 88 Respiratory Rate 15 19 Blood Pressure 120/78 119/79 114/78 Pulse Oximetry 97 98 99 Oxygen Delivery Method Room Air Room Air Room Air MDM - Allergic Reaction MDM Narrative Medical decision making narrative: This is a 77-year-old male who appears to have had a contrast mediated reaction. Patient had an MRI with contrast today afterwards he developed periorbital swelling and redness of his eyes as well as red rash or as face and extremities. Patient received prednisone oral Benadryl. He did not have any other airway involvement. Patient swelling improved although he does have some scleral edema persistent his periorbital swelling has significantly resolved and his rash has resolved. Patient states he feels much better. Discussed continue prednisone, Benadryl and follow-up. That he needs to be pretreated for any future MRIs contrast. Did give a called Ophthalmology they were uncomfortable speaking with me about his symptoms over the phone or giving any recommendations and offered to see the patient in the office as I had called to see if he would benefit from any topical steroid drops. Discussed with patient he has option to follow up with the Ophthalmology office if he would like. Discharge Plan Departure Patient Disposition: Home Clinical Impression: Allergic reaction to contrast dye Qualifiers: Encounter type: initial encounter Qualified Code(s): T50.8X5A - Adverse effect of diagnostic agents, initial encounter Instructions: DI for Adverse Drug Reaction -- Allergic Activity Restrictions/Additional Instructions: You do appear to have had an allergic reaction to the contrast dye in your MRI. If you require future MRIs they can pre treat with steroids and Benadryl to help prevent symptoms. Please take prednisone once daily until gone. You may take 1-2 tablets of Benadryl every 6 hours as needed for symptoms. Prescription for prednisone sent to [facility] in [place]. Please return for fevers, increasing swelling, sudden vision changes, swelling of your lips tongue airway, throat, if you have chest pain or shortness of breath passing out persistent vomiting, rash that is recurring or spreading or other new or concerning changes. Prescriptions: New prednisone 20 mg tablet 40 mg PO DAILY Qty: 10 0RF No Action gabapentin 300 mg capsule 600 mg PO QID Qty: 240 0RF Rx Instructions: TAKE 2-300MG FOUR TIMES DAILY. ADJUST DOSE FOR BETTER PAIN CONTROL diclofenac sodium 75 mg tablet,delayed release (DR/EC) See Rx Instructions .ROUTE .COMPLEX Qty: 60 4RF Dose Instruction: TAKE 1 TABLET BY MOUTH TWICE DAILY Rx Instructions: TAKE 1 TABLET BY MOUTH TWICE DAILY tramadol 50 mg tablet 50 mg PO BID PRN (Reason: pain) Qty: 42 1RF ropinirole 1 mg tablet 1 mg PO BEDTIME Creon 24,000-76,000 -120,000 unit capsule,delayed release(DR/EC) 1 cap PO DAILY Label Comments: TAKE 1 CAPSULE BY MOUTH FOUR TIMES DAILY WITH MEALS losartan 50 mg tablet 50 mg PO DAILY cyanocobalamin (vitamin B-12) 1,000 mcg/mL solution 1,000 mcg IM QMONTH cholecalciferol (vitamin D3) 25 mcg (1,000 unit) capsule 25 mcg PO DAILY ascorbic acid (vitamin C) 500 mg capsule PO biotin 1,000 mcg tablet,chewable 1,000 mcg PO DAILY omeprazole 20 mg capsule,delayed release(DR/EC) 20 mg PO DAILY Label Comments: TAKE 1 TABLET BY MOUTH TWICE DAILY hydrocodone-acetaminophen 7.5-325 mg tablet 1 tab PO Q6-8H Label Comments: TAKE 1 TABLET BY MOUTH AT BEDTIME metoprolol tartrate 25 mg tablet 25 mg PO DAILY Referrals: Andre Tobar MD [Primary Care Provider] - Stand Alone Forms: Patient Portal/API
[2022-06-25] MEDS: diphenhydrAMINE 25 MG TABLET 50 MG PO (11:54)
[2022-06-25] MEDS: predniSONE 20 MG TABLET 60 MG PO (11:54)
[2022-06-25 13:41] VITALS: BP 119/79; PULSE 92; O2SAT 98
[2022-06-25 15:03] VITALS: BP 114/78; PULSE 88; RESP 19; O2SAT 99
== END 2022-06-25 15:05 | disposition home or self-care (01) ==
PROVIDERS: Emergency Provider Emergency Medicine; PCP Internal Medicine
DX: R22.0 Localized swelling, mass and lump, head (principal); R05.9 Cough, unspecified; T50.8X5A Adverse effect of diagnostic agents, initial encounter; K86.3 Pseudocyst of pancreas; K85.90 Acute pancreatitis without necrosis or infection, unspecified; N28.1 Cyst of kidney, acquired
CPT/HCPCS: 74183; 99283

== ENCOUNTER → 2024-10-30 12:16 | Outpatient (CLI) | payer OTHER, SELFPAY ==
--- NOTE | 2024-10-30 12:18 | DI.US.S_ITS ---
PROCEDURE: US VENOUS INSUFFICIENCY LTD INDICATIONS: CHRONIC VENIOUS INSUFF LLE TECHNIQUE: Real time scanning was performed of the left lower extremity venous system, with imaging documentation, as well as Color and pulse Doppler interrogation. COMPARISON: None. FINDINGS: Left LOWER EXTREMITY: The deep veins are normally compressible, and free of intraluminal thrombus. Color and pulse Doppler demonstrate normal intravascular flow. There is normal augmentation with distal compression maneuver. Incompetent common femoral vein. Greater saphenous vein (GSV): Normally 4 mm or less in diameter, with any reflux less than 0.5 seconds. Saphenofemoral junction (SFJ): 6 mm. No reflux. Proximal GSV: 2 mm. Reflux present at 0.6 seconds. Mid GSV: 1 mm. Too small to determine reflux. Distal GSV: 1 mm. Too small to determine reflux. Calf GSV: 1 mm, and too small to determine reflux. Anterior accessory GSV (AAGSV): Anatomic variant not present across anterior thigh. Small saphenous vein (SSV): Posterior calf, draining into popliteal vein. Posterior calf: 0.6 mm. Too small to determine reflux. Vein of Giacomini (posterior thigh connection between GSV and SSV): Anatomic variant not seen. Pillar Worker veins: Calf: Location mid calf, diameter 3 mm. Reflux at 0.8 seconds. IMPRESSION: Reflux of the common femoral vein and proximal greater saphenous vein. The mid to distal greater saphenous vein and small saphenous vein measures 1 mm. This is too small to determine reflux. Mid calf perforating vein measuring 3 mm, with reflux. Dictated by: Viral Egan M.D. on 11/03/2024 at 17:27 Approved by: Viral Egan M.D. on 11/03/2024 at 17:29
== END ==
PROVIDERS: PCP Family Medicine; Referring Provider Family Medicine; Visit Provider Family Medicine
DX: I87.2 Venous insufficiency (chronic) (peripheral) (principal); L97.322 Non-pressure chronic ulcer of left ankle with fat layer exposed
CPT/HCPCS: 93971

== ENCOUNTER → 2024-12-12 15:28 | Outpatient (CLI) | payer OTHER, SELFPAY ==
--- NOTE | 2024-12-12 15:30 | DI.MRI.S_ITS ---
PROCEDURE: MR AB PANCREATIC/MRCP PROTOCOL INDICATIONS: CYST OF PANCREAS TECHNIQUE: Coronal HASTE through the abdomen, axial 2-D FLASH in- and [id number], and breath-hold T2 FSE with fat saturation through the biliary system and pancreas. Oblique coronal and axial thin-slice HASTE, radial thick-slab HASTE centered on the extrahepatic bile ducts. Intravenous secretin: Not requested. COMPARISON: [facility], MR, MR ABDOMEN WO/W CON, 06/25/2022, 10:39. FINDINGS: Image quality: Fair Gallbladder: Surgically absent. 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 Biliary ducts: Mild post cholecystectomy biliary ectasia. Pancreas: Stable prominent pancreatic duct with a cystic lesion that communicates with the main duct measuring approximately 13 mm, unchanged. The pancreatic parenchyma is diffusely atrophic. OTHER: Lung bases: Unremarkable. Liver: No solid mass. Spleen: Size is within normal limits. Adrenal Glands: No adrenal nodules. Kidneys and Ureters: No hydronephrosis. No solid mass. No complex renal cystic lesion which requires follow up. The left kidney is atrophic compared with the right. Stomach and Bowel: Normal colonic caliber, without significant wall thickening. Peritoneum: No abnormal intraperitoneal fluid. No free air. Ventral Wall: No hernia. Abdominal Nodes: No retroperitoneal or mesenteric adenopathy by size criteria. Vessels: Aorta and inferior vena cava are normal in size. Bones: No aggressive osseous abnormality. IMPRESSION: 1. 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 There is stable post cholecystectomy biliary ectasia. 2. Pancreatic cyst with ductal communication measuring 13 mm not significantly changed from prior imaging and most consistent with a benign process. Dictated by: Marlys Valerio M.D. on 12/13/2024 at 11:36 Approved by: Marlys Valerio M.D. on 12/13/2024 at 11:47
== END ==
LOC: MRI 15:28
PROVIDERS: PCP Family Medicine; Referring Provider Internal Medicine Gastroenterology; Visit Provider Internal Medicine Gastroenterology
DX: K86.2 Cyst of pancreas (principal); K83.8 Other specified diseases of biliary tract; K83.5 Biliary cyst; Z90.49 Acquired absence of other specified parts of digestive tract
CPT/HCPCS: 74183; A9579

== ENCOUNTER → 2025-03-02 12:18 | Outpatient (CLI) | payer OTHER, SELFPAY ==
--- NOTE | 2025-03-02 12:21 | DI.RAD.S_ITS ---
PROCEDURE: XR LUMBAR SPINE 5V INDICATIONS: BACK PAIN TECHNIQUE: 5 views of the lumbar spine were acquired, including bilateral oblique views. COMPARISON: [facility], CR, XR LUMBAR SPINE MIN 4V, 02/14/2020, 12:21. FINDINGS: Moderate degenerative changes of the lower thoracic, lumbar spine with disc space narrowing and osteophytes most notably L3-4, L4-5 and L5-S1. Minimal grade 1 anterolisthesis of L3 on L4. Otherwise vertebral body heights, alignment within normal limits without radiographic evidence of fracture. Mild vascular calcifications aorta and iliac vessels. Surgical clips right upper quadrant status post cholecystectomy. Moderate amount of stool throughout the colon and rectum in a pattern of constipation possible obstipation. No gross free intraperitoneal gas. Degenerative changes of the sacroiliac joints and hips partially imaged. IMPRESSION: Degenerative changes of the lumbar spine as discussed above. If symptoms persist or worsen, or there is high clinical suspicion of lumbar abnormality, MRI could be performed. Dictated by: Vincenzo Green M.D. on 03/02/2025 at 14:23 Approved by: Vincenzo Green M.D. on 03/02/2025 at 14:25
== END ==
PROVIDERS: PCP Nurse Practitioner Family; Referring Provider Physical Medicine & Rehabilitation; Visit Provider Physical Medicine & Rehabilitation
DX: M47.26 Other spondylosis with radiculopathy, lumbar region (principal); S43.432A Superior glenoid labrum lesion of left shoulder, initial encounter; M43.16 Spondylolisthesis, lumbar region; G62.9 Polyneuropathy, unspecified; M75.102 Unspecified rotator cuff tear or rupture of left shoulder, not specified as traumatic; M19.012 Primary osteoarthritis, left shoulder
CPT/HCPCS: 72110; 99214

== ENCOUNTER 2025-04-24 14:34 | Outpatient (CLI) | payer OTHER, SELFPAY ==
[2025-04-24] VITALS (8 sets, daily range): BP systolic 120–151; BP diastolic 79–91; PULSE 68–95; RESP 15–20; TEMP 36.9; O2SAT 95–100
[2025-04-24] MEDS: MIDAZOLAM 2 MG/2 ML VIAL IV (16:36)
[2025-04-24] MEDS: LIDOCAINE 2% INJ MDV 20ML 5 ML INJ (16:40)
[2025-04-24] MEDS: LIDOCAINE 1% 20 ML 5 ML INJ (16:40)
--- NOTE | 2025-04-24 16:55 | P.PCN_ITS ---
Date/Time/Diagnoses Date of procedure: 04/24/25 Time of procedure: 16:55 Pre-procedure diagnosis: 1. FACET ARTHROPATHY Post-procedure diagnosis: same Procedure Notes Procedure: 1. BILATERAL- L4, L5 and S1 DIAGNOSTIC MB BLOCKS with SA Anesthetic Indications: [place] is referred by IZAIAH Stein for treatment of Bilateral Axial LBP. Physician: Corbin Lacy Total Fluoroscopy time (seconds): 9 Total sedation minutes: 13 Complications: none Procedure in detail & Post-procedure care: DESCRIPTION OF PROCEDURE Fluoroscopically guided, contrast-controlled bilateral L4, L5 and S1 medial branch blocks with 0.5cc of 2% Lidocaine. Following review of allergy and review of potential side effects and complications, including, but not necessarily limited to, infection, allergic reaction, local tissue breakdown, nerve injury, paralysis, stroke and possible , the patient indicated that the patient understood and agreed to proceed. An informed consent document was signed by the patient, witnessed by a nurse, and placed in the patient's chart. After review of previous anaesthesic history and IV conscious sedation the patient was deemed safe to proceed with today's procedure with IV conscious sedation as ASA class II designation. Safety time-out was performed to confirm patient ID, procedure to be performed and site of procedure. IV sedation was accomplished with a combination of 2mg of Versed was administered by the RN after DO order, titrated to patient comfort during the course of the procedure while the patient remained responsive to all verbal commands In the prone position, following sterile prep and drape of the lumbar region, the right L4, L5 and S1 anatomical location of the medial branch of the dorsal ramus was identified fluoroscopically. Subsequently an anesthetic skin wheal using 1% lidocaine solution was initiated at each of the anatomical spots. Subsequently then a 22-gauge 3.5-inch spinal needle was atraumatically introduced and advanced under fluoroscopic guidance at each of the corresponding sites at the right L4, L5 and S1 MB. After negative aspiration, 0.2cc of Isovue 200 was injected, confirming placement without vascular or intrathecal uptake. Subsequently then 0.5cc of 2% Lidocaine solution was injected at each of the corresponding sites at the right L4, L5 and S1 medial branch locations. The identical procedure was replicated on the left. The patient tolerated the procedure well without signs or symptoms of complications prior to transfer to the recovery area continued monitoring without incident. Post-procedure, the patient was monitored initiating provocative activities to measure the amount of relief from block of the facetogenic pain. The patient reported a VAS of 7 prior to the procedure and a post-procedure VAS of 1. It has been a pleasure to assist in the diagnostic and therapeutic care of your patient. POST OP INSTRUCTIONS The patient was provided with a Pain Log to complete over the next several hours and subsequent days prior to the patient's follow up with the ordering physician. If the patient has addiction medicine physician relief to the solution applied, then they may be a candidate for medial branch rhizotomy. The patient is aware, was provided, once again, with a Pain Log and will follow up with the referring physician for review and clinical correlation
== END 2025-04-24 17:15 | disposition home or self-care (01) ==
LOC: RAD 14:35
PROVIDERS: PCP Nurse Practitioner Family; Referring Provider Nurse Practitioner Family; Visit Provider Physical Medicine & Rehabilitation
DX: M47.816 Spondylosis without myelopathy or radiculopathy, lumbar region (principal); M47.817 Spondylosis without myelopathy or radiculopathy, lumbosacral region
CPT/HCPCS: 64493; 64494; 99152; J2250